=== PATIENT | female | born 1995 | race Caucasian/White ===

== ENCOUNTER 2024-08-21 10:47 | Emergency (ER) | payer MEDICAID, SELFPAY ==
--- NOTE | 2024-08-21 10:53 | ED.ABDPAIN ---
HPI - Abdominal Pain General Chief Complaint: Abdominal Pain Stated Complaint: Abdominal Pain Time Seen by Provider: 08/21/24 10:50 Discharge Plan Discharge Patient Language: Tristanian Follow-up/Referrals: Julia,MD Jarrett [Primary Care Provider] -
[2024-08-21 10:58] VITALS: BP 131/89; PULSE 115; RESP 16; TEMP 36.8; O2SAT 99
--- NOTE | 2024-08-21 11:46 | PC.NURSE ---
1055- pt not in room, registration states that they said they were going to the er.
== END 2024-08-21 11:46 | disposition left against medical advice (07) ==
PROVIDERS: PCP Internal Medicine
DX: Z53.21 Procedure and treatment not carried out due to patient leaving prior to being seen by health care provider (principal)
CPT/HCPCS: 99199

== ENCOUNTER 2024-08-21 11:23 | Emergency (ER) | payer MEDICAID, SELFPAY ==
--- NOTE | ~2024-08-21 | CT_ITS ---
EXAMINATION: CT abdomen pelvis w con DATE: 08/21/2024 12:23 INDICATION: Right lower quadrant abdominal pain. TECHNIQUE: Computed tomography (CT) of the abdomen and pelvis was performed with 100 mL Omnipaque 350 intravenous contrast. Automated exposure control and iterative reconstruction technique were employe d. The dose-length product was 1426.22 mGy-cm. COMPARISON: None. FINDINGS: The visualized portions of the lung bases are clear without pneumonia or pleural effusion. The heart size is normal. No pericardial effusion. There is diffuse hepatic steatosis. The gallbladde r, spleen, pancreas, adrenal glands, and right kidney are normal. There is a 3 mm cyst in left kidney . There are no dilated loops of bowel. The appendix is normal. There are no pathologically enlarged l ymph nodes. There is no free intraperitoneal fluid. There is mild thoracic and lumbar spondylosis. IMPRESSION: 1. Diffuse hepatic steatosis. Reviewed, dictated and finalized at location A. EAR ENGINEERING TECHNICIAN
[2024-08-21 11:25] VITALS: BP 136/90; PULSE 121; RESP 18; TEMP 36.2; O2SAT 100
[2024-08-21 12:10] LABS: BEDSIDEPREGUCG Negative (Negative)
[2024-08-21 12:15] LABS: Basophils Percent Auto 0.3 % (0.2-1.2); Eosinophils Percent Auto 0.3 % (0-4.4); Hematocrit 44.9 % (37.0-47.0); Hemoglobin 14.9 g/dL (12.0-15.0); Immature Granulocyte Absolute 0.05 K/mm3 (0.00-0.031); Immature Granulocyte Percent A 0.4 % (0-0.5); Lymphocytes Absolute Auto 2.68 K/mm3 (0.9-3.2); Lymphocytes Percent Auto 23.2 % (18.3-44.2); Mean Corpuscular HGB Conc 33.2 g/dl (32-36); Mean Corpuscular Hemoglobin 27.7 pg (26-34); Mean Corpuscular Volume 83.6 fl (80-100); Mean Platelet Volume 10.5 fl (7.4-10.4); Monocytes Absolute Auto 0.8 K/mm3 (0.1-0.6); Monocytes Percent Auto 7.3 % (2.6-8.5); Neutrophils Absolute Auto 7.9 K/mm3 (1.3-6.7); Neutrophils Percent Auto 68.5 % (45.5-73.1); Platelet Count Result 315 k/mm3 (150-375); Red Blood Count 5.37 M/mm3 (4.2-5.4); Red Cell Distribution Width 13.4 % (11.5-14.5); White Blood Count 11.6 K/mm3 (4.5-10.0)
[2024-08-21 12:22] LABS: Add Urine Microscopic? YES; Appearance Urine Clear (Clear); Bacteria Urine 1+ /hpf; Bilirubin Urine Negative (Negative); Blood Urine Negative (Negative); Color Urine Yellow (Yellow); Glucose Urine UA Negative (Negative); Ketones Urine Negative (Negative); Leukocyte Esterase Ur 2+ LEU/UL (Negative); Nitrate Urine Negative (Negative); Non Pathogenic Casts 0-2; Protein Urine Negative (Negative); RBC Urine 0-2 /hpf (0-2); Specific Grav Ur 1.007 (1.001-1.035); Squamous Epithelial Cell Urine Occasional /hpf (Few); Urobilinogen Urine 0.2 mg/dL (<2.0); pH Urine 7.5 (5.0-9.0)
[2024-08-21 12:25] LABS: Alanine Aminotransferase 40 U/L (6-35); Albumin Level 4.5 g/dL (3.5-5.1); Alkaline Phosphatase 66 U/L (38-126); Anion Gap 10 mmol/L (4-12); Aspartate Amino Transferase 35 U/L (14-36); Blood Urea Nitrogen 8 mg/dL (7-17); Calcium 9.3 mg/dL (8.4-10.2); Carbon Dioxide 25 mmol/L (22-30); Chloride 104 mmol/L (98-107); Estimated CRCL calculation 167 ml/min; Estimated Glomerular Filt Rate > 60; Glucose 79 mg/dL (65-110); Lipase 59 U/L (23-300); Sodium 139 mmol/L (137-145)
--- NOTE | 2024-08-21 12:26 | ED_ITS ---
HPI - Abdominal Pain General Chief Complaint: Abdominal Pain Stated Complaint: lower right abd pain Time Seen by Provider: 08/21/24 12:24 Source: patient and family Mode of arrival: ambulatory Limitations: no limitations History of Present Illness HPI narrative: RIGHT LOWER QUADRANT PAIN STARTED YESTERDAY, INTERMITTENT, WORSE WITH MOVEMENT, NOTHING MAKE IT BETTER. DULL ACHING, NO RADIATION. PATIENT REPORTS INTERMITTENT CHILLS AND NAUSEA Related Data Allergies Allergy/AdvReac Type Severity Reaction Status Date / Time No Known Allergies Allergy Verified 08/21/24 12:00 Review of Systems 2 Review of Systems: All systems reviewed & are unremarkable except as noted in HPI and below Exam 2 Narrative: GENERAL APPEARANCE: WELL-DEVELOPED, WELL-NOURISHED SKIN: NORMAL COLOR HEAD: NORMOCEPHALIC, NONTRAUMATIC EYES: CLEAR CONJUNCTIVA ENT: OROPHARYNX NORMAL, EARS NORMAL, NOSE NORMAL NECK: SUPPLE, NONTENDER CHEST AND RESPIRATORY: AIRWAY PATENT, NO RESPIRATORY DISTRESS, NO ACCESSORY MUSCLE USE HEART: REGULAR RATE/RHYTHM ABDOMEN: SOFT, MILD SUPRAPUBIC TENDERNESS NO ORGANOMEGALY, QUIET BOWEL SOUNDS VASCULAR: NORMAL PERIPHERAL PULSES, NORMAL CAPILLARY REFILL. MUSCULOSKELETAL: NORMAL RANGE OF MOTION, NONTENDER BACK NEUROLOGIC: ALERT AND ORIENTED ?3, HEAVY FORGER HELPER IS NORMAL TESTED, NO GROSS MOTOR DEFICIT Course Vital Signs Vital signs: Vital Signs Temperature 36.2 C L 08/21/24 11:25 Pulse Rate 121 H 08/21/24 11:25 Respiratory Rate 18 08/21/24 11:25 Blood Pressure 136/90 08/21/24 11:25 Pulse Oximetry 100 08/21/24 11:25 Oxygen Delivery Room Air 08/21/24 11:25 Temperature 36.2 C L 08/21/24 11:25 Pulse Rate 121 H 08/21/24 11:25 Respiratory Rate 18 08/21/24 11:25 Blood Pressure 136/90 08/21/24 11:25 Pulse Oximetry 100 08/21/24 11:25 Oxygen Delivery Room Air 08/21/24 11:25 MDM - Abdominal Pain MDM Narrative Medical decision making narrative: PATIENT CAME WITH RIGHT LOWER QUADRANT PAIN VITAL SIGNS SHOWING HEART RATE OF 121 OTHERWISE INSIGNIFICANT PHYSICAL EXAMINATION SHOWING TENDERNESS SUPRAPUBIC AREA DIFFERENTIAL DIAGNOSIS INCLUDE APPENDICITIS, URINARY TRACT INFECTION, OVARIAN CYST, CONSTIPATION, COLITIS, DIVERTICULITIS BLOOD WORKUP TODAY INCLUDES CBC CMP, LIPASE SHOWED WBC 11.6 URINALYSIS SHOWED 2+ LEUKOCYTE ESTRACE CT SCAN OF THE ABDOMEN AND PELVIS WITH IV CONTRAST SHOWED NO ACUTE ABNORMALITIES, DIFFUSE HEPATIC STEATOSIS DIAGNOSIS URINARY TRACT INFECTION PATIENT RECEIVED 1 G OF ROCEPHIN IV PRIOR TO DISCHARGE DISCHARGED ON MACROBID Differential Diagnosis Differential diagnosis: Likely other ( ABOVE) Lab Data 08/21/24 12:05 08/21/24 12:05 Labs: Lab Results 08/21/24 08/21/24 Range/Units 11:41 12:05 WBC 11.6 H (4.5-10.0) K/mm3 RBC 5.37 (4.2-5.4) M/mm3 Hgb 14.9 (12.0-15.0) g/dL Hct 44.9 (37.0-47.0) % MCV 83.6 (80-100) fl MCH 27.7 (26-34) pg MCHC 33.2 (32-36) g/dl RDW 13.4 (11.5-14.5) % Plt Count 315 (150-375) k/mm3 MPV 10.5 H (7.4-10.4) fl Immature Gran % (Auto) 0.4 (0-0.5) % Neut % (Auto) 68.5 (45.5-73.1) % Lymph % (Auto) 23.2 (18.3-44.2) % [place] % (Auto) 7.3 (2.6-8.5) % Eos % (Auto) 0.3 (0-4.4) % Baso % (Auto) 0.3 (0.2-1.2) % Lymph # (Auto) 2.68 (0.9-3.2) K/mm3 [place] # (Auto) 0.8 H (0.1-0.6) K/mm3 Eos # (Auto) 0.0 (0-0.3) K/mm3 Baso # (Auto) 0.0 (0.0-0.1) K/mm3 Abs Immat Gran (auto) 0.05 H (0.00-0.031) K/mm3 Absolute Neuts (auto) 7.9 H (1.3-6.7) K/mm3 Absolute Nucleated RBC 0.000 (0.0-0.012) K/mm3 Nucleated RBC % 0.0 (0.0-0.2) % Sodium 139 (137-145) mmol/L Potassium 4.0 (3.4-5.0) mmol/L Chloride 104 (98-107) mmol/L Carbon Dioxide 25 (22-30) mmol/L Anion Gap 10 (4-12) mmol/L BUN 8 (7-17) mg/dL Creatinine 0.53 L (0.7-1.0) mg/dL Estim Creat Clear Calc 167 ml/min Estimated GFR > 60 (59 - ) Glucose 79 (65-110) mg/dL Calcium 9.3 (8.4-10.2) mg/dL Total Bilirubin 1.0 (0.2-1.3) mg/dL AST 35 (14-36) U/L ALT 40 H (6-35) U/L Alkaline Phosphatase 66 (38-126) U/L Total Protein 8.0 (6.3-8.2) g/dL Albumin 4.5 (3.5-5.1) g/dL Lipase 59 (23-300) U/L Urine Color Yellow (Yellow) Urine Appearance Clear (Clear) Urine pH 7.5 (5.0-9.0) Ur Specific [place] 1.007 (1.001-1.035) Urine Protein Negative (Negative) mg/dL Urine Glucose (UA) Negative (Negative) mg/dL Urine Ketones Negative (Negative) mg/dL Ur Blood (Man) Negative (Negative) Urine Nitrate Negative (Negative) Urine Bilirubin Negative (Negative) Urine Urobilinogen 0.2 (<2.0) mg/dL Leukocyte Esterase Rfl 2+ H (Negative) DAIANA/UL Urine RBC 0-2 (0-2) /hpf Urine WBC 6-10 H (0-3) /hpf Ur Squamous Epith Cells Occasional (Few) /hpf Urine Bacteria 1+ H /hpf Urine Casts 0-2 POC Urine HCG, Qual Negative (Negative) Critical Care Time Critical Care Time Critical Care Time: No Discharge Plan Discharge Clinical Impression: Urinary tract infection Patient Disposition: Home, Self-Care Condition: Stable Instructions: Antibiotic Form, Urinary Tract Infection in Women (ED) Additional Instructions: THE PT WAS DISCHARGED TO HOME.THE PT,S CONDITION UPON DISCHARGE WAS FAIR,EDUCATION WAS PROVIDED TO THE PT IN REFERENCE TO THE FINAL IMPRESSION,DISCHARGE STUDY RESULTS,TREATMENT,PROGNOSIS AND NEED FOR FOLLOW UP . Patient Language: Turkmen Prescriptions: New nitrofurantoin monohyd/m-cryst [Macrobid] 100 mg capsule 100 mg PO Q12H 5 Days Qty: 10 0RF Rx Instructions: must administer with a meal/food Follow-up/Referrals: Julia,MD Jarrett [Primary Care Provider] -
[2024-08-22 11:11] LABS: Estimated CRCL calculation 130 ml/min; Estimated Glomerular Filt Rate > 60
== END 2024-08-21 13:09 | disposition home or self-care (01) ==
LOC: ANHED 12:49
PROVIDERS: Emergency Provider Emergency Medicine; PCP Internal Medicine
DX: N39.0 Urinary tract infection, site not specified (principal)
CPT/HCPCS: 36415; 74177; 80053; 81001; 81025; 82565; 83690; 85025; 87086; 96365; 99284; J0696; Q9967

== ENCOUNTER 2025-01-06 11:35 | Emergency (ER) | payer OTHER, SELFPAY ==
[2025-01-06 11:44] VITALS: BP 143/87; PULSE 112; RESP 16; TEMP 36.3; O2SAT 100
[2025-01-06] MEDS: KETOROLAC 30 MG/ML VIAL (*BKC) 15 MG IM (12:11)
[2025-01-06] MEDS: METOCLOPRAMIDE HCL INJ 10 MG/2 ML VIAL IM (12:12)
[2025-01-06] MEDS: droPERidol 5 MG/2 ML VIAL IM (13:48)
[2025-01-06 15:17] VITALS: BP 113/72; PULSE 89; RESP 15; O2SAT 98
--- OUTSIDE RECORDS SUMMARY | 2025-01-06 18:01 | XMS_ITS | Encounter Summary ---
Author Organization [facility] [place] [address] [place] [address] Care Team Providers Care Kindergarten Assistant Name Role Phone Unavailable Primary Care Provider Unavailabl e Prior Encounters Date Type Department Care Team Description 06/08/2022 Telephone [facility] [address] [place] [address] Roxane Matt DDS 04/17/2021 Travel 04/17/2021 9:00 AM CDT Office Visit [facility] [address] [place] [address] Roxane Matt DDS 04/06/2021 Travel 04/06/2021 4:15 PM CDT Office Visit [facility] [address] [place] [address] Roxane Matt DDS 08/27/2019 Converted 13x Documents [facility] [address] [place] [phone] <No scans attached> 08/27/2019 Converted CPS Chart Documents [facility] [address] [place] [address] <No scans attached> 08/27/2019 Converted CPS Chart Documents [facility] [address] [place] [phone] <No scans attached> 08/27/2019 Converted 13x Documents [facility] [address] [place] [address] <No scans attached> 08/27/2019 Converted 13x Documents [facility] [address] [place] [phone] <No scans attached> Last Filed Vital Signs Vital Sign Reading Time Taken Comments Blood Pressure 107/69 04/17/2021 9:05 AM CDT Pulse 96 04/17/2021 9:05 AM CDT Temperature 36.4 C (97.6 F) 04/17/2021 9:05 AM CDT Respiratory Rate - - Oxygen Saturation - - Inhaled Oxygen Concentration - - Weight - - Height - - Body Mass Index - - Plan of Treatment Not on file Procedures Procedure Name Priority Date/Time Associated Diagnosis Comments OCCLUSAL GUARD DELIVERY Routine 04/17/20 9:00 AM CDT ORAL HYGIENE INSTRUCTIONS Routine 2020 9:00 AM CDT TOPICAL APPLICATION OF FLUORIDE VARNISH Routine 04/17/2021 9:00 AM CDT PROPHYLAXIS - ADULT Routine 04/17/2021 9 :00 AM CDT PERIODIC ORAL EVALUATION - ESTABLISHED PATIENT Routine 04/17/2021 9:00 AM CDT OCCLUSAL GUARD HARD APPLIANCE, FULL ARCH Routine 04/06/2021 4:15 PM CDT PANORAMIC RADIOGRAPHIC IMAGE Routine 04/06/2021 4:15 PM CDT BITEWING - SINGLE RADIOGRAPHIC IMAGE Routine 04/06/2021 4:15 PM CDT ADDITIONAL X-RAY Routine 04/06/2021 4:15 PM CDT SINGLE X-RAY Routine 04/06/2021 4:15 PM CDT LIMITED ORAL EVALUATION - PROBLEM FOCUSED Routine 04/06/2021 4:15 PM CDT PERIODIC ORAL EVALUATION - ESTABLISHED PATIENT Routine 09/02/2020 2:00 AM MANAGER CORPORATE RESPONSIBILITY ORAL HYGIENE INSTRUCTIONS Routine 2020 2:00 AM MANAGER CORPORATE RESPONSIBILITY TOPICAL APPLICATION OF FLUORIDE VARNISH Routine 09/02/2020 2:00 AM MANAGER CORPORATE RESPONSIBILITY PROPHYLAXIS - ADULT Routine 09/02/2020 2 :00 AM MANAGER CORPORATE RESPONSIBILITY BITEWINGS - FOUR RADIOGRAPHIC IMAGES Routine 09/02/2020 2:00 AM MANAGER CORPORATE RESPONSIBILITY ADDITIONAL X-RAY Routine 09/02/2020 2:00 AM MANAGER CORPORATE RESPONSIBILITY ADDITIONAL X-RAY Routine 09/02/2020 2:00 AM MANAGER CORPORATE RESPONSIBILITY ADDITIONAL X-RAY Routine 09/02/2020 2:00 AM MANAGER CORPORATE RESPONSIBILITY ADDITIONAL X-RAY Routine 09/02/2020 2:00 AM MANAGER CORPORATE RESPONSIBILITY ADDITIONAL X-RAY Routine 09/02/2020 2:00 AM MANAGER CORPORATE RESPONSIBILITY SINGLE X-RAY Routine 09/02/2020 2:00 AM MANAGER CORPORATE RESPONSIBILITY ORAL HYGIENE INSTRUCTIONS Routine 2019 2:00 AM CDT TOPICAL APPLICATION OF FLUORIDE VARNISH Routine 02/26/2020 2:00 AM CDT PROPHYLAXIS - ADULT Routine 02/26/2020 2 :00 AM CDT PERIODIC ORAL EVALUATION - ESTABLISHED PATIENT Routine 02/26/2020 2:00 AM CDT TOPICAL APPLICATION OF FLUORIDE VARNISH Routine 08/28/2019 2:00 AM MANAGER CORPORATE RESPONSIBILITY PROPHYLAXIS - ADULT Routine 08/28/2019 2 :00 AM MANAGER CORPORATE RESPONSIBILITY PERIODIC ORAL EVALUATION - ESTABLISHED PATIENT Routine 08/28/2019 2:00 AM MANAGER CORPORATE RESPONSIBILITY ORAL HYGIENE INSTRUCTIONS Routine 2019 2:00 AM MANAGER CORPORATE RESPONSIBILITY DELIVER RETAINER(S) Routine 07/19/2019 2 :00 AM MANAGER CORPORATE RESPONSIBILITY DELIVERY - REPLACEMENT RETAINER - MAXILLARY Routine 06/14/2019 2:00 AM MANAGER CORPORATE RESPONSIBILITY REMOVABLE ORTHODONTIC RETAINER ADJUSTMENT Routine 06/14/2019 2:00 AM MANAGER CORPORATE RESPONSIBILITY PERIO CONSULT Routine 03/13/2019 2:00 AM CDT ORAL HYGIENE INSTRUCTIONS Routine 2018 2:00 AM CDT TOPICAL APPLICATION OF FLUORIDE VARNISH Routine 02/27/2019 2:00 AM CDT PROPHYLAXIS - ADULT Routine 02/27/2019 2 :00 AM CDT PERIODIC ORAL EVALUATION - ESTABLISHED PATIENT Routine 02/27/2019 2:00 AM CDT BITEWINGS - FOUR RADIOGRAPHIC IMAGES Routine 02/27/2019 2:00 AM CDT ADDITIONAL X-RAY Routine 02/27/2019 2:00 AM CDT ADDITIONAL X-RAY Routine 02/27/2019 2:00 AM CDT ADDITIONAL X-RAY Routine 02/27/2019 2:00 AM CDT ADDITIONAL X-RAY Routine 02/27/2019 2:00 AM CDT ADDITIONAL X-RAY Routine 02/27/2019 2:00 AM CDT SINGLE X-RAY Routine 02/27/2019 2:00 AM CDT INTRAORAL PHOTO Routine 02/27/2019 2:00 AM CDT INTRAORAL PHOTO Routine 02/27/2019 2:00 AM CDT INTRAORAL PHOTO Routine 02/27/2019 2:00 AM CDT INTRAORAL PHOTO Routine 02/27/2019 2:00 AM CDT ORAL HYGIENE INSTRUCTIONS Routine 2018 2:00 AM MANAGER CORPORATE RESPONSIBILITY TOPICAL APPLICATION OF FLUORIDE VARNISH Routine 08/22/2018 2:00 AM MANAGER CORPORATE RESPONSIBILITY PROPHYLAXIS - ADULT Routine 08/22/2018 2 :00 AM MANAGER CORPORATE RESPONSIBILITY PERIODIC ORAL EVALUATION - ESTABLISHED PATIENT Routine 08/22/2018 2:00 AM MANAGER CORPORATE RESPONSIBILITY ORAL HYGIENE INSTRUCTIONS Routine 2017 2:00 AM CDT TOPICAL APPLICATION OF FLUORIDE VARNISH Routine 02/06/2018 2:00 AM CDT PROPHYLAXIS - ADULT Routine 02/06/2018 2 :00 AM CDT COMPREHENSIVE ORAL EVALUATION - NEW OR ESTABLISHED PATIENT Routine 02/06/2018 2:00 AM CDT PANORAMIC RADIOGRAPHIC IMAGE Routine 02/06/2018 2:00 AM CDT BITEWINGS - FOUR RADIOGRAPHIC IMAGES Routine 02/06/2018 2:00 AM CDT CANCELLED APPOINTMENT Routine 08/06/2016 2:00 AM MANAGER CORPORATE RESPONSIBILITY CANCELLED APPOINTMENT Routine 08/06/2016 2:00 AM MANAGER CORPORATE RESPONSIBILITY PERIODIC ORAL EVALUATION - ESTABLISHED PATIENT Routine 03/31/2016 2:00 AM CDT ORAL HYGIENE INSTRUCTIONS Routine 2015 2:00 AM CDT TOPICAL APPLICATION OF FLUORIDE VARNISH Routine 02/26/2016 2:00 AM CDT PROPHYLAXIS - ADULT Routine 02/26/2016 2 :00 AM CDT PERIODIC ORAL EVALUATION - ESTABLISHED PATIENT Routine 02/26/2016 2:00 AM CDT PERIODIC ORAL EVALUATION - ESTABLISHED PATIENT Routine 08/11/2015 2:00 AM MANAGER CORPORATE RESPONSIBILITY ORAL HYGIENE INSTRUCTIONS Routine 2014 2:00 AM MANAGER CORPORATE RESPONSIBILITY TOPICAL APPLICATION OF FLUORIDE VARNISH Routine 07/29/2015 2:00 AM MANAGER CORPORATE RESPONSIBILITY PROPHYLAXIS - ADULT Routine 07/29/2015 2 :00 AM MANAGER CORPORATE RESPONSIBILITY 19 B COMPOSITE FILLING Routine 4 2:00 AM MANAGER CORPORATE RESPONSIBILITY 18 B COMPOSITE FILLING Routine 4 2:00 AM MANAGER CORPORATE RESPONSIBILITY ORAL HYGIENE INSTRUCTIONS Routine 2013 2:00 AM MANAGER CORPORATE RESPONSIBILITY TOPICAL APPLICATION OF FLUORIDE VARNISH Routine 07/31/2014 2:00 AM MANAGER CORPORATE RESPONSIBILITY PROPHYLAXIS - ADULT Routine 07/31/2014 2 :00 AM MANAGER CORPORATE RESPONSIBILITY PERIODIC ORAL EVALUATION - ESTABLISHED PATIENT Routine 07/31/2014 2:00 AM MANAGER CORPORATE RESPONSIBILITY BITEWINGS - FOUR RADIOGRAPHIC IMAGES Routine 07/31/2014 2:00 AM MANAGER CORPORATE RESPONSIBILITY BITEWINGS - FOUR RADIOGRAPHIC IMAGES Routine 01/30/2014 2:00 AM CDT ADDITIONAL X-RAY Routine 01/30/2014 2:00 AM CDT ADDITIONAL X-RAY Routine 01/30/2014 2:00 AM CDT ORAL HYGIENE INSTRUCTIONS Routine 2013 2:00 AM CDT TOPICAL APPLICATION OF FLUORIDE EXCLUDING VARNISH Routine 01/29/2014 2:00 AM CDT PROPHYLAXIS - ADULT Routine 01/29/2014 2 :00 AM CDT PERIODIC ORAL EVALUATION - ESTABLISHED PATIENT Routine 01/29/2014 2:00 AM CDT INTRAORAL - COMPREHENSIVE SERIES OF RADIOGRAPHIC IMAGES Routine 01/29/2014 2:00 AM CDT INTRAORAL PHOTO Routine 01/29/2014 2:00 AM CDT INTRAORAL PHOTO Routine 01/29/2014 2:00 AM CDT INTRAORAL PHOTO Routine 01/29/2014 2:00 AM CDT INTRAORAL PHOTO Routine 01/29/2014 2:00 AM CDT ORAL HYGIENE INSTRUCTIONS Routine 2012 2:00 AM MANAGER CORPORATE RESPONSIBILITY TOPICAL APPLICATION OF FLUORIDE EXCLUDING VARNISH Routine 06/26/2013 2:00 AM MANAGER CORPORATE RESPONSIBILITY PROPHYLAXIS - CHILD Routine 06/26/2013 2 :00 AM MANAGER CORPORATE RESPONSIBILITY PERIODIC ORAL EVALUATION - ESTABLISHED PATIENT Routine 06/26/2013 2:00 AM MANAGER CORPORATE RESPONSIBILITY CANCELLED APPOINTMENT Routine 04/23/2013 2:00 AM CDT THERAPEUTIC PARENTERAL DRUG, SINGLE ADMINISTRATION Routine 04/17/2013 2:00 AM CDT 16 REMOVAL OF IMPACTED TOOTH - COMPLETELY BONY, WITH UNUSUAL SURGICAL COMPLICATIONS Routine 04/17/2013 2:00 AM CDT 1 REMOVAL OF IMPACTED TOOTH - COMPLETELY BONY, WITH UNUSUAL SURGICAL COMPLICATIONS Routine 04/17/2013 2:00 AM CDT 32 EXTRACTION, ERUPTED TOOTH REQUIRING REMOVAL OF BONE AND/OR SECTIONING OF TOOTH Routine 04/17/2013 2:00 AM CDT 17 EXTRACTION, ERUPTED TOOTH REQUIRING REMOVAL OF BONE AND/OR SECTIONING OF TOOTH Routine 04/17/2013 2:00 AM CDT 1 APPLICATION OF DESENSITIZING MEDICAMENT Routine 04/17/2013 2:00 AM CDT ORAL HYGIENE INSTRUCTIONS Routine 2012 2:00 AM CDT PROPHYLAXIS - ADULT Routine 10/18/2012 2 :00 AM CDT COMPREHENSIVE ORAL EVALUATION - NEW OR ESTABLISHED PATIENT Routine 10/18/2012 2:[address] CD[address] CAPTURE AND INTERPRETATION WITH FIELD OF VIEW OF BOTH JAWS; WITH OR WITHOUT CRANIUM Routine 10/18/2012 2:00 AM CDT BITEWINGS - FOUR RADIOGRAPHIC IMAGES Routine 10/18/2012 2:00 AM CDT INTRAORAL PHOTO Routine 10/18/2012 2:00 AM CDT Visit Diagnoses Not on file Insurance [id number]
--- OUTSIDE RECORDS SUMMARY | 2025-01-06 18:01 | XMS_ITS | Data Portability ---
Author Organization [facility] [place] Address [address] [place] [address] Assessment Encounter Date Assessment Date Assessment LastModified by Organization Details LastModified Time 06/27/2024 06/27/2024 Annual gynecological exam performed. Patient will come back in a year unless there are new symptoms. [email or web address] Not available 06/27/2024 11:59:13 Plan of Treatment Reminders Order Date Submit Date Provider Last Modified By Organization Details Last Modified Time Details Appointments None recorded. Lab pap, IG + reflex HPV if ASC-U - if positive HPV run subtyping 16,18/45 2023 024 [facility] (Lab), [address], [place], [address], 4 15:38:55 Referral None recorded. Procedures None recorded. Surgeries robotic assisted hysterectom y with salpingecto my (SURG) 2024 025 [facility], [facility] [address], [address], 5 10:17:03 Imaging None recorded. Medication Orders Slynd 4 mg (28) tablet 2024 025 [id number], [address] [place], [place], [id number], 5 13:19:49 Slynd 4 mg (28) tablet 2023 024 [id number], [address] [facility] [place], [place], [id number], 4 12:43:01 Patient TargetsNo targets recorded. Patient InstructionsNo instructions recorded. Reason for Referral None Reported. Results Created Date Observation Date Name Description Value Unit Range Abnormal Flag Note LastModifiedBy Organization Detail LastModifiedTime 06/29/20 24 10/08/2022 CT, abdom en + pelvi s, w/ contr ast No observ ation record ed. [email or web address] [facility] [address], [place], [address], 06/29/2024 14:17:00 Result Notes None recorded. Procedures Surgical History Date Name Laterality Status Provider Name and Address Organization Details Recorded Time 4 Date of Last Pap Smear completed SHONNA Pierre [facility] 09/27/2024 11:43:51 2 Laparoscopy completed Lyubov Kiana [facility] 06/27/2024 11:59:42 Imaging Results None recorded. Procedure Notes None recorded. Medical Equipment None Reported. Allergies No known drug allergies Medications Name Sig Start Date Stop Date Status Note LastModified by Organization Details LastModified Time alosetron 1 mg tablet TAKE 1 TABLET BY MOUTH DAILY 06/27 completed Not Available Not Available Not Available dicyclomine 20 mg tablet active Not Available Not Available Not Available ergocalcifer ol (vitamin D2) 1,250 mcg (50,000 unit) capsule TAKE 1 CAPSULE BY MOUTH EVERY 7 DAYS active Not Available Not Available No t Available amoxicillin 875 mg-potassium clavulanate 125 mg tablet 09/27 completed Not Available Not Available Not Available nitrofuranto in monohydrate/ macrocrystal s 100 mg capsule TAKE 1 CAPSULE BY MOUTH EVERY 12 HOURS FOR 5 DAYS 09/27 completed Not Available Not Available Not Available dicyclomine 10 mg tablet Take 1 tablet every day by oral route. 09/27 completed Not Available Not Available Not Available Blisovi Fe 08/27 (28) 1 mg-20 mcg (21)/75 mg (7) tablet Take 1 tablet every day by oral route. 09/27 completed Not Available Not Available Not Available Slynd 4 mg (28) tablet Take 1 tablet every day by oral route. active Not Available Not Available No t Available Vitals Date Recorded Body height Body mass index (BMI) Body weight Systolic blood pressure Diastolic blood pressure Provider Name and Address Organization Details Last Updated DateTime 09/27/2024 167.64 cm 40.4 kg/m2 110422.0 9 g 123 mm[Hg] 81 mm[Hg] SHONNA Gabby [facility] 5 11:42:56 Date Recorded Body height Body mass index (BMI) Body weight Systolic blood pressure Diastolic blood pressure Provider Name and Address Organization Details Last Updated DateTime 10/22/2024 167.64 cm 40.4 kg/m2 498504.0 9 g 128 mm[Hg] 83 mm[Hg] Angela [facility] 5 12:09:17 Date Recorded Body height Body mass index (BMI) Body weight Systolic blood pressure Diastolic blood pressure Provider Name and Address Organization Details Last Updated DateTime 11/21/2024 167.64 cm 39.9 kg/m2 647001.3 2 g 114 mm[Hg] 83 mm[Hg] [facility] 5 11:33:57 Date Recorded Body weight Body mass index (BMI) Body height Provider Name and Address Organization Details Last Updated DateTime 06/27/2024 95187.86 g 24.2 kg/m2 167.64 cm [facility] 06/27/2024 12:02:26 Social History Question Answer Notes LastModified by Organizat ion Details LastModified Time Do You Have An Advance Directive? No [email or web address] Information n ot available 06/27/2024 How Many Years Have You Consumed Alcohol? 7 Information not available 06/27/2024 Are You Blind Or Do You Have Difficulty Seeing? No [email or web address] Information n ot available 06/27/2024 What Is Your Level Of Caffeine Consumption? Occasional [email or web address] Information not available 06/27/2024 How Much Tobacco Do You Chew? None [email or web address] Information not available 06/27/2024 In The 14 Days Before Symptom Onset, Have You Had Close Contact With A Laboratory-confirm ed COVID-19 While That Case Was Ill? No [email or web address] Information n ot available 06/27/2024 In The 14 Days Before Symptom Onset, Have You Had Close Contact With A Person Who Is Under Investigation For COVID-19 While That Person Was Ill? No [email or web address] Information not available 06/27/2024 Have You Been To An Area Known To Be High Risk For COVID-19? No [email or web address] Information not available 06/27/2024 Are You Deaf Or Do You Have Serious Difficulty Hearing? No [email or web address] Information not available 06/27/2024 What Type Of Diet Are You Following? REGULAR [email or web address] Information n ot available 06/27/2024 What Is The Highest Grade Or Level Of School You Have Completed Or The Highest Degree You Have Received? [id number] [email or web address] Information not available 06/27/2024 Are There Any Guns Present In Your Home? No [email or web address] Information not available 06/27/2024 Do You Use Protection During Sex? Always [email or web address] Information not available 06/27/2024 Do You Use Your Seat Belt Or Car Seat Routinely? Yes [email or web address] Information not available 06/27/2024 Do You Have Smoke And Carbon Monoxide Detectors In Your Home? Yes [email or web address] Information not available 06/27/2024 At What Age Did You Start Smoking Tobacco? 0 [email or web address] Information not available 06/27/2024 Do You Use Sunscreen Routinely? Yes [email or web address] Information not available 06/27/2024 How Many Years Have You Smoked Tobacco? 0 Information not available 06/27/2024 Have You Used IV Drugs? No [email or web address] Information not available 06/27/2024 Do You Have Difficulty Walking Or Climbing Stairs? No [email or web address] Information not available 09/27/2024 Sex: Unknown Functional Status Question Answer Note LastModified by Organizat ion Details LastModified Time Do you use any illicit or recreational drugs? No [email or web address] Information not available 06/27/2024 What is your level of alcohol consumption? Occasional [email or web address] Information not available 06/27/2024 Are you able to walk? [email or web address] Information not available 06/27/2024 Are you able to care for yourself? 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 No [email or web address] Information not available 09/27/2024 What is your exercise level? Occasional [email or web address] Information not available 06/27/2024 Mental Status Question Answer Note LastModified by Organization D etails LastModified Time Do you feel stressed (tense, restless, nervous, or anxious, or unable to sleep at night)? [id number] [email or web address] Information not available 06/27/2024 Family History Relationship Description Onset Age of this Age Resolved Age Notes LastModified by Organization Details LastModified Time Maternal Grandmother Diabetes mellitus 50 [email or web address] Not available 2023 11:59:42 Father Diabetes mellitus 50 [email or web address] Not available 2023 11:59:42 Medical History Condition Response Allergies (Food, seasonal, environmental ) Y Eating Disorder Y Other Y Polycystic ovary syndrome Y Gynecological History Statement/Question Response Flow Light Date of LMP 09/11/2024 N Was last menstrual period normal N STIs/STDs N Date of Last Colonoscopy BCPs Desired Control Method Sterilizati on Abnormal Pap N On BCP's at Conception? N HPV Vaccine Y Duration of Flow (days) 5 13 Current Control Method BCPs Age at First Child 1 Are cycles usually normal N Sexually Active? N Menses Monthly Y Age of first menstrual cycle 13 Date of Last Pap Smear 06/27/2024 Sexual Problems? N LMP Approximate N Obstetrics History GPAL:G 0 P 0 0 0 0 Past Encounters Encounter ID Performer Location Encounter Start Date Encounter Closed Date Diagnosis/Indication Diagnosis SNOMED-CT Code Diagnosis ICD10 Code Diagnosis Note [id number] Humble Parker MD [place] [address] [address] 06/27/2024 11:44:23 06/27/2024 12:48:42 Gynecologic examination 09603738 Z01.419 Annual gynecologi stephon exam performed. Patient will come back in a year unless there are new symptoms. Suggest Calcium with Vitamin D if not eating in diet. Patient advised to get annual flu shot. Recommend yearly physicals and perform monthly breast exams. Genetic testing is available for patients with family history of cancer. Engage in safe sexual practices, use condoms. Encouraged to have daily exercise. Avoid tobacco and illicit drugs, moderation of alcohol. If BMI greater than 25 dietary consult advised. If you have any questions please call or email. Pap smear- pap w/ HPV reflex collected STI testing - declined Contracept ion care management 146264762 Z30.9 Today we discussed multiple options for menorrhagi a/dysmenor martin including: IUDs, Patch, Ring, Pills, Nexplanon, Lysteda.We discussed if any are contraindi cated with her current health Hx.Patient desires to continue on a BC pill. Discussed Slynd vs. Seasonique 3-month dosepack vs. monthly CHC.Patien t interested in progestero ne-only pills to try. Samples given. Pt to start Slynd when next pill pack is due. Risks/bene fits/instr uctions for use reviewed.P atient to RTO in 3 months for med check. Secondary dysmenorrhea 42960074 N94.5 [id number] Humble Parker MD [place] [address] [address] 09/27/2024 11:33:44 09/27/2024 13:22:10 Contraception care management 975603213 Z30.9 has noticed some improvemen t since starting slyndstill feels like symptoms could be better controlled options reviewed (continous cycling, switching pills/alte rnative options like IUD, or MD consult)we discussed option of continous cycling, skip placebo pills and go straight to new packshe is going to try this over the next 4 monthsRTC for med check in 4 months Time spent in visit is a total of 18 mins with at least 50% of visit consisting of counseling and review of plan of care. Dysmenorrhea 332231291 N 94.6 [id number] Humble Parker MD [place] [address] [address] 10/22/2024 11:45:12 10/22/2024 12:45:40 Menorrhagia 596876445 N92.0 Dysmenorrhea 977106976 N 94.6 This patient is a 29 year-old female presents for heavy vaginal bleeding. She has longstandi ng very heavy bleeding. Her menses are regular. However, they require double protection . Patient has accidents, getting blood on her bedding and clothing. Is affected work. She changes a pad or tampon every hour. She leaks blood around the pad and tampon. This bleeding has a profound impact on her quality of life and her activities of daily living.the patient has failed hormonal contracept memo treatment. Patient would like definitive surgical treatment. She has PCOS in addition to the severe menorrhagi a. We have agreed to proceed with robotic assisted hysterecto my with bilateral salpingect gonzález. We discussed the risks, benefits, and alternativ es keeping her ovaries. I spent over 30 minutes on her care in total. [id number] Humble Parker MD [place] [address] [address] 11/21/2024 11:21:36 11/21/2024 14:47:24 Pain in pelvis 02652064 R10.2 Menorrhagia 078964679 N9 2.0 29-year-ol d female who presents for more counseling regarding treatment of pelvic pain, menorrhagi a and hysterecto my. She has concerns about hormonal status. She has concerned about her polycystic ovarian syndrome. We discussed keeping and leaving the ovaries. The risks, benefits, and alternativ es to the ovarian preservati on/ removal. Talked about hormone replacemen t therapy in detail. We talked about PCOS as it pertains to post hysterecto my. I spent over 30 minutes on the patient's care in total. We agreed to proceed with hysterecto my. Polycystic ovary syndrome [id number] E28.2 Health Concerns Section Related Observation LastModified by Organization Detai ls LastModified Time None Recorded Concern Status LastModified by Organization Details LastModified Time None Recorded Advance Directives Directive N: Payers Encounter Date Sequence Insurance Name Policy Number Policy Beltran Covered Member ID Beltran Member ID Guarantor Name 06/27/2024 1 [place] [id number] Sandrine Degraff [id number] Sandrine Degraff 09/27/2024 1 [place] [facility] PUBLIC [employer] Sandrine Melvin [id number] Sandrine Degraff 10/22/2024 1 [facility] (MEDICAID HMO) [id number] Sandrine Riverraff [id number] Sandrine Degraff 11/21/2024 1 [facility] (MEDICAID HMO) [id number] Sandrine Degraalma [id number] Sandrine Riverraalma Notes Date Note Type Note Provider Name and Address Organization Details Recorded Time 06/27/2024 text/html Annual GYNReport ed bypatient.Menstrual cycle:Severe dysmenorrhea Urinary symptoms:No hematuria; No incontinence Vulva:No genital lesion Vagina:Normal vaginal discharge Breast:No breast pain; No breast lump; No nipple discharge Current Contraception:Oral contraceptives Sexual complaints:No sexual complaints; No pain during intercourse; Normal libido Menopausal Symptoms:No menopausal symptoms; Normal vaginal lubrication Psychological symptoms:No depression; No anxiety; No PMDD Preventive measures:Encourage self breast examination; Encourage regular exercise; Encourage no tobacco use; Encourage regular mammograms starting age 40 New patient presents to establish care.Patient hx of PCOS.Patient c/o painful periods and ovarian cysts in the past that were controlled with BC pills, but recently has had more dysmenorrhea and heavier periods recently on Blisovi. Patient denies additional concerns. Pt would like to switch BC pills.Not sexually active. Lyubov adams, [facility] 06/27/2024 14:09:48 09/27/2024 text/html 29yopresents for med checkstarted slynd for dysmenorrhea 3 months agoprevious to slynd tried combined OCP and was still experiencing painful periodshas noticed improvement with slynd, still experiencing some discomfort during placebo pills KIAN Sims [address], [place], [address], [facility] 09/27/2024 13:22:03 10/22/2024 text/html This patient is a 29 year-old female presents for heavy vaginal bleeding. She has longstanding very heavy bleeding. Her menses are regular. However, they require double protection. Patient has accidents, getting blood on her bedding and clothing. Is affected work. She changes a pad or tampon every hour. She leaks blood around the pad and tampon. This bleeding has a profound impact on her quality of life and her activities of daily living.the patient has failed hormonal contraceptive treatment. Patient would like definitive surgical treatment. She has PCOS in addition to the severe menorrhagia. We have agreed to proceed with robotic assisted hysterectomy with bilateral salpingectomy. We discussed the risks, benefits, and alternatives keeping her ovaries. I spent over 30 minutes on her care in total. Humble Parker MD [address], [place], [address], [facility] 10/22/2024 12:44:08 11/21/2024 text/html 29-year-old femcarlos aguayo who presents for more counseling regarding treatment of pelvic pain, menorrhagia and hysterectomy. She has concerns about hormonal status. She has concerned about her polycystic ovarian syndrome. We discussed keeping and leaving the ovaries. The risks, benefits, and alternatives to the ovarian preservation/ removal. Talked about hormone replacement therapy in detail. We talked about PCOS as it pertains to post hysterectomy. I spent over 30 minutes on the patient's care in total. We agreed to proceed with hysterectomy. Humble Parker MD [address], [place], [address], [facility] 11/21/2024 14:20:47 OBGyn Episode No OBEpisode recorded.
--- OUTSIDE RECORDS SUMMARY | 2025-01-06 18:01 | XMS_ITS ---
Author Organization [facility] Address [address] [place], [place] [address] Care Team Providers Care Keyboarding Clerk Name Role Phone Jarrett Dumont Unavailable Unavailable RUDY RICARDO Unavailable [phone] Allergies No Known Allergies REASON FOR VISIT The patient has a painful ingrown toenail on the lateral aspect of her left great toenail. She has to dig it out and it keeps coming back. She would like it treated Vital Signs Height 66 in 05/17/2024 Weight 240 lbs 05/17/2024 BMI 38.73 kg/m2 05/17/2024 Height-cm 167.64 cm 05/17/2024 Weight-kg 108.86 kg 05/17/2024 Encounters Encounter Location Date Provider Diagnosis [facility] [address] [place], [place] [id number] 05/17/2024 RUDY RICARDO Ingrowing nail L60.0 ; Cellulitis of left toe L03.032 and Pain in left toe(s) M79.675 Assessments Encounter Date Diagnosis (ICD Code) Assessment Notes Treatment Notes Treatment Clinical Notes Section Notes 05/17/2024 Ingrowing nail (ICD-10 - L60.0) Matrixectomy of Nail Border: I discussed various treatment options to the patient for their toenail issue. I discussed removal of the offending nail border and chemical matrixectomy to prevent regrowth. The patient decided on permanent removal of the nail border. The consent was signed and placed in the patients chart and all questions were answered. Following skin prep, the toe was injected with 3ccs of a 1:1 mixture of 0.5% marcaine plain and 1% lidocaine plain. A digital tourniquet was applied and the offending nail border and nail matrix were removed. Three applications of 89% phenol for 30 seconds each, were applied to the nail matrix to prevent regrowth. The digital tourniquet was released and the toe was cleansed with isopropyl alcohol. A dry sterile compressive dressing was applied and the patient was given soaking instructions. The lateral border of the left great toenail was treated 05/17/2024 Cellulitis of left toe (ICD-10 - L03.032) 05/17/2024 Pain in left toe(s) (ICD-10 - M79.675) Plan Of Treatment Treatment Notes Assessment Notes Ingrowing nail Matrixectomy of Nail Border: I discussed various treatment options to the patient for their toenail issue. I discussed removal of the offending nail border and chemical matrixectomy to prevent regrowth. The patient decided on permanent removal of the nail border. The consent was signed and placed in the patients chart and all questions were answered. Following skin prep, the toe was injected with 3ccs of a 1:1 mixture of 0.5% marcaine plain and 1% lidocaine plain. A digital tourniquet was applied and the offending nail border and nail matrix were removed. Three applications of 89% phenol for 30 seconds each, were applied to the nail matrix to prevent regrowth. The digital tourniquet was released and the toe was cleansed with isopropyl alcohol. A dry sterile compressive dressing was applied and the patient was given soaking instructions. The lateral border of the left great toenail was treated Next Appt Details Follow Up: 1 Week, Reason: P ost-op nail surgery check Progress Notes * Hola MELVINraDOB:1994 (29 yo F)Acc No.[id number]:05/17/2024 Progress Notes Patient: Sandrine HERMAN Provider: Charleen Ricardo DPM :1995 A ge:29 Y S ex:Female Date:05/17/2024 Address: [address] [id number] Subjective: * Chief Complaints: * 1 . The patient has a painful ingrown toenail on the lateral aspect of her left great toenail. She has to dig it out and it keeps coming back. She would like it treated. * HPI: H PI: New Complaint P elliott presents for a new patient consultation., Patient complains of an issue to Left lateral GT. , Duration of problem has been going on for years. Painful to the touch. , Patient denies any injury. Patient states she did try to remove it herself and is afraid she cut the ingrown nail portion off of the nail and can't seem to get it out. , MA: beg. * ROS: G eneral / Constitutional: Patient denies c hills, fever, weakness, night sweats. M usculoskeletal: Patient denies c hildhood foot problems, weakness. ? P eripheral Vascular: Patient denies u lceration of feet, cold extremities. ? S kin: Patient denies u lcerations, discoloration. P atient complains of i ngrown nails. N eurologic: Patient denies b alance difficulty, confusion, difficulty speaking, dizziness. * Medical History: * Surgical History: w isdom teeth extraction . * Family History: F ather: alive, Diabetic. M other: alive, GERD. * Medications: N one * Allergies: N .K.D.A. Objective: * Vitals: S hoe Size: 8.5, Wt:240lbs, Wt-k.86 kg, Ht: 66 in, Ht-cm: 167.64 cm, BMI:38.73Index, Body Surface Area: 2.25. * Examination: C onstitutional: Constitutional T he patient is awake, alert, well developed, well groomed and well nourished. D ermatologic: Skin findings: S kin is warm, dry, supple with no breaks in the skin. Ingrown Nail N ail is incurvated on the, lateral border of the left great toenail. V ascular: Dorsalis pedis pulse: 2 /4, bilateral. Posterior tibial pulse: 2 /4, bilateral. Capillary refill: l ess than 3 seconds. Edema: N o edema, bilateral. N eurologic: Gross sensation G ross sensation is intact to light touch.? M usculoskeletal: Muscle Strength M uscle strength is 5/5 in regards to dorsiflexion, plantarflexion, inversion, and eversion in bilateral lower extremities. ? Assessment: * Assessment: 1. I ngrowing nail - L60.0 (Primary) 2 . C ellulitis of left toe - L03.032? 3. P ain in left toe(s) - M79.675 Plan: * Treatment: * Procedure Codes: 1 1750 REMOVAL OF NAIL BED, Modifiers: TA * Follow Up: 1 Week (Reason: Post-op nail surgery check) * Billing Information: * Visit Code: 31046 Office Visit, New Pt., Level 3. Modifiers: 25 * Procedure Codes: 03541 REMOVAL OF NAIL BED. Modifiers: TA * Electronic signature of RUDY RICARDO DPM on 01/06/2025 at 06:00 PM CDT Sign off status: Pending * Provider: Charleen Ricardo DPM Date: Generated for Chelsie eric/Kaleb/Zackery on: 0 01/06/2025 06:00 PM CDT History and Physical Notes * HPI (History of Present Illness) Category Sub-Category Detail Notes Category Not es HPI New Complaint Patient presents for a new patient consultation., Patient complains of an issue to Left lateral GT. , Duration of problem has been going on for years. Painful to the touch. , Patient denies any injury. Patient states she did try to remove it herself and is afraid she cut the ingrown nail portion off of the nail and can't seem to get it out. , MA: beg Examination Category Sub-Category Detail Notes Category Not es Dermatologic Skin findings: Skin is warm, dr y, supple with no breaks in the skin Ingrown Nail Nail is incurvated o n the, lateral border of the left great toenail Neurologic Gross sensation Gross sensation is intact to light touch Vascular Dorsalis pedis pulse: 2/4, bilateral Edema: No edema, bilateral Capillary refill: less than 3 seconds Posterior tibial pulse: 2/4, bilateral Musculoskeletal Muscle Strength Muscle strength is 5/5 in regards to dorsiflexion, plantarflexion, inversion, and eversion in bilateral lower extremities Constitutional Constitutional The patient is a wake, alert, well developed, well groomed and well nourished
--- OUTSIDE RECORDS SUMMARY | 2025-01-06 18:01 | XMS_ITS | Clinical Summary ---
Author Organization [facility] Address [address] [place] [address] Care Team Providers Care Self Rising Flour Mixer Name Role Phone Unavailable Primary Care Provider Unavailabl e Allergies No known active allergies Medications norethindrone-e.es tradioL-iron (Lo Loestrin Fe) 1 mg-10 mcg (24)/10 mcg (2) tablet Activ e FLUoxetine (PROzac) 20 mg capsule Active Active Problems No known active problems Social History Tobacco Use Types Packs/Day Years Used Date Smoking Tobacco: Never Smokeless Tobacco: Never Alcohol Use Standard Drinks/Week Comments Never 0 (1 standard drink = 0.6 oz pur e alcohol) Comments Unknown Sex and Gender Information Value Date Recorded Sex Assigned at Not on file Legal Sex Female 8:42 PM PST Gender Identity Not on file Sexual Orientation Not on file Last Filed Vital Signs Vital Sign Reading Time Taken Comments Blood Pressure 107/69 04/17/2021 9:05 AM CDT Pulse 96 04/17/2021 9:05 AM CDT Temperature 36.4 C (97.6 F) 04/17/2021 9:05 AM CDT Respiratory Rate - - Oxygen Saturation - - Inhaled Oxygen Concentration - - Weight - - Height - - Body Mass Index - - Plan of Treatment Health Maintenance Due Date Last Done Comments Dental CBCT 10/19/2015 10/18/2012 Dental X-Ray: Full Mouth 01/30/2017 01/29/2014 Dental X-Ray: Bitewings 03/03/2021 09/02/2020 Dental Oral Exam 10/16/2021 04/17/2021, , 02/26/2020, Additional history exists Dental Prophylaxis 10/16/2021 04/17/2021, 0 09/02/2020, 02/26/2020, Additional history exists Dental X-Ray: Panoramic 04/07/2024 04/06/2021, 02/06 Meningococcal B Vaccine Aged Out No l onger eligible based on patient's age to complete this topic Procedures Procedure Name Priority Date/Time Associated Diagnosis Comments PROPHYLAXIS - ADULT Routine 04/17/2021 9 :00 AM CDT PERIODIC ORAL EVALUATION - ESTABLISHED PATIENT Routine 04/17/2021 9:00 AM CDT PANORAMIC RADIOGRAPHIC IMAGE Routine 04/06/2021 4:15 PM CDT INTRAORAL - COMPREHENSIVE SERIES OF RADIOGRAPHIC IMAGES Routine 01/29/2014 2:[address] CAPTURE AND INTERPRETATION WITH FIELD OF VIEW OF BOTH JAWS; WITH OR WITHOUT CRANIUM Routine 10/18/2012 2:00 AM CDT from Last 3 Months or Most Recently Relevant to Health Maintenance [facility]
--- OUTSIDE RECORDS SUMMARY | 2025-01-06 18:01 | XMS_ITS | Patient Health Record ---
Author Organization [facility] Address [address] [facility] [address] [place] [address] Care Team Providers Care Scholarship Counselor Name Role Phone SHIRA MUIR Primary Care Provider Allergies No Known Allergies Reason For Referral No Information Medications Medication SIG (Take, Route, Frequency, Duration) Notes Start Date End Date Status FLUoxetine HCl 20 MG 1 capsule Orally On ce a day Active Loestrin 1.5/30 (21) 1.5-30 MG-MCG 1 tablet Orally Once a day for 21 day(s) Active Cetirizine HCl 10 MG 1 tablet Orally Once a day Active Immunizations Vaccine Route Administration Date Status Comme nts FLUZONE Influenza Vaccine PFS Quad PF 2020 - 2021 IM Intramuscular 06/04/2021 Administered Halima Aguero ti 06/04/2021 11:25:00 AM > Patient tolerated well. Social History Tobacco Use: Social History Observation Description Date Details (start date - stop date) Never Smoker NA - NA Tobacco Use/Smoking Question Answer Notes Are you a nonsmoker Alcohol Screen (Audit-C) Question Answer Notes Did you have a drink containing alcohol in the p ast year? No Points 0 Interpretation Negative Sexual History Question Answer Notes Had sex in the past 12 months (vaginal, oral, or anal)? Yes with Women only Use protection? No Have you ever had a Sexually transmitted disease ? No Last menstrual period 05/12/2021 Tobacco use other than smoking: Question Answer Notes Are you an other tobacco user? No Problems Problem Type SNOMED Code ICD Code Onset Dates Problem Status W/U Status Risk Notes Problem 228225250 Encounter for immunization (Z23) Active confirmed Problem 13920807 Allergic rhinitis, unspecified seasonality, unspecified trigger (J30.9) Active confirmed Problem 71882407 Vitamin D deficiency (E55.9) Active confirmed Problem 19329444 Anxiety (F41.9) Active confirmed Problem 488667012 Mild intermitten t asthma without complication (J45.20) Active confirmed Problem 75208142 Sinus tachycardi a (R00.0) Active confirmed Problem 50195906 Decreased breath sounds (R06.89) Active confirmed Problem 65078104 Iron deficiency anemia, unspecified iron deficiency anemia type (D50.9) Active confirmed Problem 552505097 Adult general medical exam (Z00.00) Active confirmed Problem 719296601 Screening for depression (Z13.31) Active confirmed Problem 180302644 Alcohol screenin g (Z13.39) Active confirmed Plan Of Treatment Future Test Test Name Order Date VITAMIN B12 (927) 06/04/2021 Insurance Providers Payer Name Payer Address Payer Phone Subscriber Number Group Number Insured Name Patient Relationship to Insured Coverage Start Date Coverage End Date 6 [facility] ([employer] ) [address] [address] [place] [address] [id number] SUSI MORGAN Self - patient is the insured Medical (General) History Medical History History ICD Code OCD 2017 Surgical History Surgery Date(Month/Year) Tonsils, adenoids removed 2009 wisdom teeth removed 2017
--- OUTSIDE RECORDS SUMMARY | 2025-01-06 18:01 | XMS_ITS ---
Author Organization [facility] Address [address] [place], [place] [address] Care Team Providers Care Operational Assistant Name Role Phone Jarrett Dumont Unavailable Unavailable RUDY RICARDO Unavailable [phone] Allergies No Known Allergies REASON FOR VISIT Patient returns to the office following toenail surgery. The patient is doing well Encounters Encounter Location Date Provider Diagnosis [facility] [address] [place], [place] [id number] 05/28/2024 RUDY RICARDO Ingrowing nail L60.0 and Encounter for other specified surgical aftercare Z48.89 Assessments Encounter Date Diagnosis (ICD Code) Assessment Notes Treatment Notes Treatment Clinical Notes Section Notes 05/28/2024 Ingrowing nail (ICD-10 - L60.0) Post-op Matrixectomy The patient will continue foot soaks and covering with a dry bandage until drainage has stopped. The patient will monitor this area for any signs of recurrence and contact the office with any problems. Patient will follow-up on an as-needed basis. 05/28/2024 Encounter for other specified surgical aftercare (ICD-10 - Z48.89) Plan Of Treatment Treatment Notes Assessment Notes Ingrowing nail Post-op Matrixectomy The patient will continue foot soaks and covering with a dry bandage until drainage has stopped. The patient will monitor this area for any signs of recurrence and contact the office with any problems. Patient will follow-up on an as-needed basis. Next Appt Details Follow Up: prn, Reason: Progress Notes * Cheng MELVINOB:1994 (29 yo F)Acc No.[id number]:05/28/2024 Patient: Sandrine HERMAN Provider: Charleen Ricardo DPM :1995 A ge:29 Y S ex:Female Date:05/28/2024 [address] [id number] Subjective: * Chief Complaints: * 1 . Patient returns to the office following toenail surgery. The patient is doing well. * HPI: H PI: Follow Up Visit P atient presents for follow-up visit for nail surgery, left great, lateral side. Patient states she has had no pain. Patient denies and blood or drainage. Patient has no concerns at this time, MA: NETTE. * Medical History: * Surgical History: w isdom teeth extraction . * Family History: F ather: alive, Diabetic. M other: alive, GERD. * Medications: N one * Allergies: N .K.D.A. Objective: * Vitals: * Examination: D ermatologic: Ingrown Nail N ail surgery site is healing well. No signs of infection. Assessment: * Assessment: 1. I ngrowing nail - L60.0 (Primary) 2 . E ncounter for other specified surgical aftercare - Z48.89 Plan: * Treatment: * Procedure Codes: 9 9024 POSTOP FOLLOW-UP VISIT * Follow Up: p rn * Billing Information: * Visit Code: * Procedure Codes: 44068 POSTOP FOLLOW-UP VISIT. * Electronic signature of RUDY RICARDO DPM on 01/06/2025 at 06:00 PM CDT Sign off status: Pending * Provider: Charleen Ricardo DPM Date: Generated for Chelsie eric/Kaleb/Zackery on: 0 01/06/2025 06:00 PM CDT History and Physical Notes * HPI (History of Present Illness) Category Sub-Category Detail Notes Category Not es HPI Follow Up Visit Patient presents for follow-up visit for nail surgery, left great, lateral side. Patient states she has had no pain. Patient denies and blood or drainage. Patient has no concerns at this time, MA: NETTE Examination Category Sub-Category Detail Notes Category Not es Dermatologic Ingrown Nail Nail surgery sit e is healing well. No signs of infection
--- OUTSIDE RECORDS SUMMARY | 2025-01-06 18:01 | XMS_ITS | Patient Health Record ---
Author Organization [facility] Address [address] [place], [place] [address] Care Team Providers Care Tool And Gauge Inspector Name Role Phone Jarrett Dumont Unavailable Unavailable SNOOK, RUDY Unavailable [phone] Allergies No Known Allergies Reason For Referral No Information Vital Signs Height-cm 167.64 cm 05/17/2024 Weight-kg 108.86 kg 05/17/2024 Height 66 in 05/17/2024 Weight 240 lbs 05/17/2024 BMI 38.73 kg/m2 05/17/2024 Encounters Encounter Location Date Provider Diagnosis [facility] [address] [facility] [address] [place], [place] [id number] 05/17/2024 RUDY SNOOK Ingrowing nail L60.0 ; Cellulitis of left toe L03.032 and Pain in left toe(s) M79.675 [facility] [place] [address] [place], [place] [id number] 05/28/2024 RUDY SNOOK Ingrowing nail L60.0 and Encounter for other specified surgical aftercare Z48.89 Assessments Encounter Date Diagnosis (ICD Code) Assessment Notes Treatment Notes Treatment Clinical Notes Section Notes 05/17/2024 Cellulitis of left toe (ICD-10 - L03.032) 05/17/2024 Ingrowing nail (ICD-10 - L60.0) Matrixectomy [...] of the left great toenail was treated 05/28/2024 Ingrowing nail (ICD-10 - L60.0) Post-op Matrixectomy The patient will continue foot soaks and covering with a dry bandage until drainage has stopped. The patient will monitor this area for any signs of recurrence and contact the office with any problems. Patient will follow-up on an as-needed basis. 05/28/2024 Encounter for other specified surgical aftercare (ICD-10 - Z48.89) 05/17/2024 Pain in left toe(s) (ICD-10 - M79.675) Plan Of Treatment No Information Insurance Providers Payer Name Payer Address Payer Phone Subscriber Number Group Number Insured Name Patient Relationship to Insured Coverage Start Date Coverage End Date [facility] ([facility]) ATTN CLAIMS [address] [place] [address] [id number] Sandrine Melvin Self - patient is the insured Medical (General) History Surgical History Surgery Date(Month/Year) wisdom teeth extraction
--- OUTSIDE RECORDS SUMMARY | 2025-01-06 18:01 | XMS_ITS | Patient Health Record ---
Author Organization [facility] Billing Info Address [address] [facility] [place] [address] Care Team Providers Care Renal Medicine Physician Name Role Phone LANRE FARLEY [phone] Allergies No Known Allergies Reason For Referral No Information Medications Medication SIG (Take, Route, Frequency, Duration) Notes Start Date End Date Status Lo Loestrin Fe 1 MG-10 MCG / 10 MCG 1 tablet Orally Once a day for 90 days daily Active Zyrtec Allergy daily Activ e Hydrocodone-Acetaminop hen 5-325 MG 1 tablet as needed Orally every 6 hrs for 7 day(s) 12/07/2021 Not-Taking Fluoxetine HCl 20 MG 1 tablet Orally Onc e a day for 30 day(s) 07/28/2021 Active Fluoxetine 20mg daily Active Social History Tobacco Status: Question Answer Notes Patient is a non tobacco user Problems Problem Type SNOMED Code ICD Code Onset Dates Problem Status W/U Status Risk Notes Problem 32951032 Secondary dysmenorrhea (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) Active confirmed Problem 258584041 Encounter for gynecological examination (Z01.419) Active confirmed Problem 4781956 Surveillance for control, oral contraceptives (Z30.41) Active confirmed Problem 28155055 Pelvic pain (R10.2) Active confirmed Plan Of Treatment Pending Test Test Name Order Date URINALYSIS, DIP STICK/TABLET REAGENT; NON-AUTOMATED W/O MICROSCOPY (91723) 10/13/2021 Insurance Providers Payer Name Payer Address Payer Phone Subscriber Number Group Number Insured Name Patient Relationship to Insured Coverage Start Date Coverage End Date [employer] [address] [place] [id number] Sandrine Woodward Self - patient is the insured 2 2 Medical (General) History Medical History History ICD Code Anemia - very mild Asthma - very mild OCD Surgical History Surgery Date(Month/Year) Robotic diag lap w/ excision of endo 05/2022
== END 2025-01-06 15:38 | disposition home or self-care (01) ==
PROVIDERS: Emergency Provider Emergency Medicine; PCP Internal Medicine
DX: G43.909 Migraine, unspecified, not intractable, without status migrainosus (principal)
CPT/HCPCS: 96372; 99284; J1790; J1885; J2765

== ENCOUNTER 2025-01-31 12:13 | Outpatient (CLI) | payer OTHER, SELFPAY | END 2025-01-31 12:14 | disposition home or self-care (01) | LOC: ANHSURGERY 12:19 | PROVIDERS: PCP Internal Medicine; Visit Provider Obstetrics & Gynecology | DX: Z01.812 Encounter for preprocedural laboratory examination (principal); N94.6 Dysmenorrhea, unspecified | CPT/HCPCS: 36415; 86850; 86900; 86901 ==

== ENCOUNTER 2025-01-31 12:23 | Outpatient (CLI) | payer OTHER, SELFPAY ==
[2025-01-31 12:56] LABS: Basophils Percent Auto 0.4 % (0.2-1.2); Eosinophils Absolute Auto 0.1 K/mm3 (0-0.3); Eosinophils Percent Auto 0.5 % (0-4.4); Hematocrit 42.9 % (37.0-47.0); Hemoglobin 14.2 g/dL (12.0-15.0); Immature Granulocyte Absolute 0.04 K/mm3 (0.00-0.031); Immature Granulocyte Percent A 0.4 % (0-0.5); Lymphocytes Absolute Auto 2.23 K/mm3 (0.9-3.2); Lymphocytes Percent Auto 22.7 % (18.3-44.2); Mean Corpuscular HGB Conc 33.1 g/dl (32-36); Mean Corpuscular Hemoglobin 27.6 pg (26-34); Mean Corpuscular Volume 83.5 fl (80-100); Mean Platelet Volume 10.2 fl (7.4-10.4); Monocytes Absolute Auto 0.6 K/mm3 (0.1-0.6); Monocytes Percent Auto 6.3 % (2.6-8.5); Neutrophils Absolute Auto 6.9 K/mm3 (1.3-6.7); Neutrophils Percent Auto 69.7 % (45.5-73.1); Platelet Count Result 308 k/mm3 (150-375); Red Blood Count 5.14 M/mm3 (4.2-5.4); Red Cell Distribution Width 14.1 % (11.5-14.5); White Blood Count 9.8 K/mm3 (4.5-10.0)
[2025-01-31 13:35] LABS: Alanine Aminotransferase 34 U/L (6-35); Albumin Level 4.2 g/dL (3.5-5.1); Alkaline Phosphatase 62 U/L (38-126); Amylase 68 U/L (30-110); Anion Gap 10 mmol/L (4-12); Aspartate Amino Transferase 30 U/L (14-36); Bilirubin,Total 0.8 mg/dL (0.2-1.3); Blood Urea Nitrogen 6 mg/dL (7-17); CRP 1.8 mg/dL (<1.0); Calcium 9.3 mg/dL (8.4-10.2); Carbon Dioxide 24 mmol/L (22-30); Chloride 104 mmol/L (98-107); Estimated Glomerular Filt Rate > 60; Glucose 114 mg/dL (65-110); Potassium 3.8 mmol/L (3.4-5.0); Sodium 138 mmol/L (137-145); Total Protein 7.4 g/dL (6.3-8.2)
== END 2025-01-31 12:24 | disposition home or self-care (01) ==
PROVIDERS: PCP Internal Medicine; Visit Provider Internal Medicine
DX: Z79.899 Other long term (current) drug therapy (principal)
CPT/HCPCS: 36415; 80053; 82150; 85025; 86140; 86850; 86900; 86901

== ENCOUNTER 2025-02-06 00:11 | Day surgery (SDC) | payer OTHER, SELFPAY ==
[2025-01-30 13:17] VITALS: BMI 40.4
--- NOTE | 2025-01-30 13:27 | PC.NURSE ---
Report to the Outpatient Waiting Room, entrance under the green pavilion located off [facility], at time _0830_ on date _[id number]_. Planned Procedure Time: _1030_.? Time changes happen often and if your time is changed the preop area will call you the afternoon before. - You and your visitor will be asked to self-screen and do not enter if you have any COVID symptoms. Please call surgeon if you need to reschedule. - A mask is optional within the hospital at this time. Patients may have clear liquids (water, carbonated beverages, clear teas, apple juice) until 3 hours prior to surgery with a maximum of 20 ounces. - No food from midnight until time of surgery and no smoking, or chewing tobacco (or any form of nicotine). No chewing gum, candy or mints. Take only the following medications with a SIP of water on the morning of surgery: ___None___ DO NOT STOP ANY OF YOUR OTHER PRESCRIPTION MEDICATIONS PRIOR TO SURGERY EXCEPT THE FOLLOWING Hold all vitamins and supplements for 3 days per anesthesiologist. Medications to discontinue per physician Date to take last edzr__[id number]__ Please no make-up, nail uruguayan, hairspray, perfume, deodorant, or body powder the day of surgery.? No jewelry (including any body piercings) or valuables the day of surgery, leave them at home.? Please take a shower or bath the night before, or the morning of, surgery with an antibacterial soap.? Wear comfortable, loose fitting clothing.? - Jewelry must be removed prior to entering the operating room.? Rings and piercings that are not removed may be cut off. - The hospital will not accept responsibility for valuables.? - Please leave all valuables, including medications, at home the day of surgery. If you are going home after surgery, a licensed tow driver must drive you home.? - NO public transportation without another adult if you receive anesthesia. - We recommend that an adult stay with you for 24 hours following discharge. - We also recommend that you do not drive, make important decision, drink alcoholic beverages, or take any drugs that were not prescribed by your health care provider for at least 24 hours after your discharge time. Follow any additional instructions given to you from your surgeon. Telephone instructions given to __Alex__and asked if any additional questions and then verbalized understanding. Patient advised to call surgeon office or pre surgery nurse liaison [phone] if any additional questions.
[2025-02-06] VITALS (11 sets, daily range): BP systolic 122–141; BP diastolic 64–86; PULSE 98–118; RESP 12–20; TEMP 36.6–37.2; O2SAT 95–100
--- OUTSIDE RECORDS SUMMARY | 2025-02-06 00:13 | XMS_ITS | Clinical Summary ---
Author Organization [facility] Address [facility] [place] [address] Care Team Providers Care Nurse Head Name Role Phone Jarrett Dumont MD Primary Care Provider [phone] Allergies Active Allergy Reactions Criticality Noted Date Comments Quetiapine Other (see comment) 01/26/2025 Not tolerating medication and patient wanting an alternative. Medications Cholecalciferol (VITAMIN D) 50 MCG (1999 UT) CapIndications:Vit okeefe D deficiency Take 2,000 Units by mouth daily. 4 Active SLYND 4 MG Tab Take 1 tablet by mouth daily. 4 Active dicyclomine (BENTYL) 20 MG tabletIndications: Diarrhea, unspecified type Take 1 tablet (20 mg total) by mouth every 6 (six) hours as needed (cramping, loose stools). 90 tablet 1 5 Active Multiple Vitamin (MULTIVITAMIN ADULT) Tab Active fish oil (OMEGA-3 FATTY ACID) 1000 MG Cap capsule Take 1 capsule (1,000 mg total) by mouth 2 (two) times daily. Active cetirizine (ZYRTEC) 10 MG tablet Take 1 tablet (10 mg total) by mouth daily. Active ondansetron (ZOFRAN-ODT) 4 MG disintegrating tabletIndications: Epigastric pain,Nausea Take 1 tablet (4 mg total) by mouth every 6 (six) hours as needed for Nausea. 30 tablet 2 5 Active rimegepant (NURTEC) 75 MG disintegrating tabletIndications: Migraine without aura and without status migrainosus, not intractable Take 1 tablet (75 mg total) by mouth daily as needed. Max of 1 tablet (75 mg) in 24 hours. 16 tablet 6 5 Active rizatriptan (MAXALT) 5 MG tabletIndications: Migraine without aura and without status migrainosus, not intractable Take 1 tablet (5 mg total) by mouth as needed for Migraine. May repeat in 2 hours if needed times one dose 8 tablet 5 5 Active doxepin (SINEQUAN) 10 MG capsuleIndications :Insomnia, unspecified type Take 1 capsule (10 mg total) by mouth nightly at bedtime. 30 capsule 1 5 Active SUMAtriptan (IMITREX) 25 MG tabletIndications: Migraine without aura and without status migrainosus, not intractable Take 1 tab by mouth as needed for migraine. May repeat dose in 2 hours. Max of 8 tablets (200 mg) in a 24 hour period. 8 tablet 1 5 025 Discontin ued(Thera py completed ) ubrogepant (UBRELVY) 100 MG tabletIndications: Migraine without aura and without status migrainosus, not intractable Take 1 tablet (100 mg total) by mouth 2 (two) times daily as needed for Migraine. Max of 2 tablets (200 mg) in 24 hours 10 tablet 1 5 025 Discontin ued(Alter josh therapy) traZODone (DESYREL) 50 MG tabletIndications: Insomnia, unspecified type Take 1 tab by mouth 1 hour before bedtime. Increase to 2 tabs if needed. 60 tablet 1 5 025 Discontin ued(Thera py completed ) QUEtiapine (SEROQUEL) 50 MG tabletIndications: Insomnia, unspecified type Take 1 tablet (50 mg total) by mouth nightly at bedtime. 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 Autism (HHS/HCC) 12/05/2024 Migraine without aura and wi thout status migrainosus, not intractable 12/05/2024 Abdominal pain 04/23/2024 Liver lesion 04/23/2024 PCOS (polycystic ovarian syndrome) 10/15/2022 Seasonal allergies 02/18/2022 Adenomyosis 12/09/2021 Fatty (change of) liver, not elsewhere classifie d 12/09/2021 Encounters Date Type Department Care Team Description 02/04/2025 5:22 PM CDT Hospital Encounter [facility] Sleep Lab [address] [place] [address] Jarrett Dumont MD Insomnia With Sleep Apnea 02/04/2025 Travel 01/31/2025 Scan [facility] Scanned, [facility] (SCAN) 01/30/2025 Telephone [place] [address] [facility] [address] [place] [address] Jarrett Dumont MD Lab Order 01/26/2025 Telephone [place] [address] [address] [facility] [address] [place] [address] Jarrett Dumont MD Medication Information 01/25/2025 Telephone [place] [address] [address] [facility] [address] [place] [address] Jarrett Dumont MD Referral 01/24/2025 MyChart Message Enc [place] [address] [address] [place] [address] [address] [place] [address] Jarrett Dumont MD Seroquel 01/16/2025 1:40 PM CDT Office Visit [place] [address] [place] [address] [address] [place] [address] Jarrett Dumont MD Follow Up; Sleep Problem (Ongoing a while worse now that she has a migraine ); Migraine (Pt states she has not received the medication ubervly NO pa started ) 01/16/2025 Telephone [place] [address] [place] [address] [address] [place] [address] Jarrett Dumont MD Prior Authorization 01/16/2025 Travel 01/11/2025 MyChart Message Enc [place] [address] [facility] [address] [place] [address] Carole Ray, EMBOSSING TOOL SETTER Please help 01/10/2025 2:40 PM CDT Office Visit [place] [address] [facility] [address] [place] [address] Carole Ray, EMBOSSING TOOL SETTER Migraine 01/10/2025 Travel 01/03/2025 Travel 12/24/2024 11:19 AM CDT - 12/24/2024 11:59 PM CDT Hospital Encounter [facility] [address] [place] [address] Jarrett Dumont MD Lipe, Brooke M, RD Discharge Disposition: Home or Self Care (Routine Discharge) 12/24/2024 Travel 12/05/2024 2:20 PM CDT Office Visit [place] [address] [facility] [address] [place] [address] Carole Ray NP Nausea; Diarrhea 12/05/2024 Travel 12/04/2024 Telephone [place] [address] [facility] [address] [place] [address] Jarrett Dumont MD Error from Last 3 Months Immunizations Immunization Administration Dates Next Due Dtap (Acel-Immune) 12/29/2000 HPV4 (Gardasil) 12/25/2012,08/28/2012,06/26/2012 Hepatitis A (Havrix [address]) 07/29/2014, 014 Hepatitis B Pediatric 08/25/2006 Influenza Adult (Generic) 04/22/2024,,04/19/2020,06/26 MMR (MMRII) 12/29/2000 Meningococcal (Menomune) 01/30/2010 PFIZER COVID-19 (ORIGINAL FO RMULATION, PURPLE CAP) mRNA, LNP-S, PF, 30 MCG/0.3 ML DOSE 04/22/2024,05/19/2021,11/14/2020,10/24 Pneumococcal (Pneumovax 23) 03/16/2022 Polio IPV (Ipol) 12/29/2000 Td, Adsorbed, Preservative F ree, Adult Use, Lf Unspecified 01/21/2010 Tdap (Boostrix) 05/28/2024 Family History Medical History Relation Comments Diabetes Father Hypertension Father Diabetes Maternal Grandmother Diabetes Paternal Grandfather Relation Status Comments Father Maternal Grandmother Paternal Grandfather Social History Tobacco Use Types Packs/Day Years Used Date Smoking Tobacco: Never Smokeless Tobacco: Never Tobacco Cessation:Counseling Given: Yes Comments:counseled by Dr Dumont Alcohol Use Standard Drinks/Week Comments Never 0 (1 standard drink = 0.6 oz pur e alcohol) PHQ-2 Answer Date Recorded Patient Health Questionnaire-2 Score 1 01/10/2025 Comments No Sex and Gender Information Value Date Recorded Sex Assigned at Female 12/05/2024 2:18 PM CDT Legal Sex Female 1:15 PM CDT Gender Identity Female 12/05/2024 2:18 PM CDT Sexual Orientation Not on file Last Filed Vital Signs Vital Sign Reading Time Taken Comments Blood Pressure 119/79 01/16/2025 1:42 PM CDT Pulse 117 01/16/2025 1:42 PM CDT Temperature 36 C (96.8 F) 01/16/2025 1:42 PM CDT Respiratory Rate 16 01/16/2025 1:42 PM CDT Oxygen Saturation 98% 01/16/2025 1:42 PM CDT Inhaled Oxygen Concentration - - Weight 113.4 kg (250 lb) 01/16/2025 1:42 PM CDT Height 167.6 cm (5' 6) 01/16/2025 1:42 PM CDT Body Mass Index 40.35 01/16/2025 1:42 PM CDT Plan of Treatment Upcoming Encounters Date Type Department Care Team (Late st Contact Info) Description 02/22/2025 1:20 PM CDT Office Visit [facility] - [address] [place] [address] Jarrett Dumont MD [address] [facility] [address] [place] [address] 05/14/2025 9:00 AM CDT Office Visit [facility] - [place] [address] [facility] [address] [place] [address] Jarrett Dumont MD [address] [facility] [address] [place] [address] Health Maintenance Due Date Last Done Comments Hepatitis B Vaccines (2 of 3 - 3-dose series) 09/22/2006 08/25/2006 COVID-19 Vaccine (2023- season) 2024 04/22/2024, 04/29/2022, 05/19/2021, Additional history exists Annual Physical 05/28/2025 05/28/2024, 03/16/2022 Cervical Cancer Screening Pap Smear (Age 21 to 29) Every 3 Years 06/27/2027 06/27/2024, 10/19/2022, 10/13/2021 Cervical Cancer Screening 06/27/2027 DTaP, Tdap and Td Vaccines (4 - Td or Tdap) 05/28/2034 05/28/2024, 01/21/2010, 12/29/2000 Meningococcal Vaccine Aged Out 01/30/2010 No layla azeb eligible based on patient's age to complete this topic HPV Vaccines Completed 12/25/2012, 08/09, 06/26/2012 Hepatitis C Completed 03/16/2022 Pneumococcal Vaccine: Pediatrics (0 to 5 Years) and At-Risk Patients (6 to 49 Years) Aged Out 03/16/2022 No longer eligible based on patient's age to complete this topic PHQ-2 (Physician [place]) Completed 01/10/2025 Meningococcal B Vaccine Aged Out No l onger eligible based on patient's age to complete this topic RSV Immunizations Under 20 Months Aged Out No longer eligible based on patient's age to complete this topic Procedures Procedure Name Priority Date/Time Associated Diagnosis Comments OUTSIDE LAB (SCAN ORDER) 01/31/2025 OUTSIDE LAB (SCAN ORDER) 01/31/2025 COLLECTION VENOUS BLOOD VENIPUNCTURE Routine 01/16/2025 2:06 PM CDT Drug therapy HEPATITIS C ANTIBODY Routine 03/16/2022 11:47 AM CDT Annual physical exam General medical exam OUTSIDE CYTOPATH CERV/VAG INTERPRET (PAP) 10/13/2021 from Last 3 Months or Most Recently Relevant to Health Maintenance Results * OUTSIDE LAB (SCAN ORDER) (01/31/2025) Only the most recent of2 resultswithin the time period is included. 01/31/2025 [facility] Scanned SCANNING Final Resu lt * HEPATITIS C ANTIBODY (03/16/2022 11:47 AM CDT) HEPATITIS C AB NON-REACTI VE NON-REACT THAO 03/16/2022 10:08 PM CDT [facility] Comment: ANTIBODIES TO HCV NOT DETECTED. DOES NOT EXCLUDE THE POSSIBILITY OF EXPOSURE TO HCV. 03/16/2022 11:4 7 AM CDT us Jarrett Dumont MD LABORATORY Final Result [facility] [address] [place] [address], [id number] * PAP SMEAR WITH HPV (10/13/2021) 10/13/2021 Narrative 10/13/2021 Ordered by an unspecified provider. us Documents Scanned SCANNING Final Result from Last 3 Months or Most Recently Relevant to Health Maintenance Insurance Care Teams Nurse Head Relationship Specialty Start Date End Date Jarrett Dumont MD [address] [facility] [address] [place] [address] PCP - General INTERNAL MEDICINE 02/18/22
--- OUTSIDE RECORDS SUMMARY | 2025-02-06 00:13 | XMS_ITS | Encounter Summary ---
Author Organization [facility] Address [address] [place] [address] Care Team Providers Care Sandblast Operator Name Role Phone Jarrett Dumont MD Primary Care Provider [phone] Encounter Details Date Type Department Care Team (Late st Contact Info) Description 05/29/2024 MyChart Message Enc [facility] [address] [phone] Jarrett Dumont MD [address] [place] [address] [phone] Vitamin D Social History Tobacco Use Types Packs/Day Years Used Date Smoking Tobacco: Never Smokeless Tobacco: Never Comments:counseled by Dr Starla servin Alcohol Use Standard Drinks/Week Comments Never 0 (1 standard drink = 0.6 oz pur e alcohol) PHQ-2 Answer Date Recorded PHQ-2 Score - If the patient scores above 3, please move on to questions 3-9 0 03/16/2022 Comments No Sex and Gender Information Value Date Recorded Sex Assigned at Female 12/05/2024 2:18 PM CDT Legal Sex Female 1:15 PM CDT Gender Identity Female 12/05/2024 2:18 PM CDT Sexual Orientation Not on file documented as of this encounter Plan of Treatment Upcoming Encounters Date Type Department Care Team (Late st Contact Info) Description 02/22/2025 1:20 PM CDT Office Visit [facility] - [address] [place] [address] Jarrett Dumont MD [address] [facility] [address] [place] [address] 05/14/2025 9:00 AM CDT Office Visit [facility] Multispecialty Care - [place] [address] [address] [place] [address] Jarrett Dumont MD [facility] [address] [address] documented as of this encounter Visit Diagnoses Not on filedocumented in this encounter Care Teams Sandblast Operator Relationship Specialty Start Date End Date Jarrett Dumont MD [address] [place] [address] PCP - General INTERNAL MEDICINE 02/18/22 documented as of this encounter
--- OUTSIDE RECORDS SUMMARY | 2025-02-06 00:15 | XMS_ITS | Encounter Summary ---
Author Organization [facility] Address [address] [place] [address] Care Team Providers Care Boat Loader Helper Name Role Phone Jarrett Dumont MD Primary Care Provider [phone] Encounter Details Date Type Department Care Team (Late st Contact Info) Description 07/05/2022 [facility] Message Enc [address] [place] [address] [facility], [facility] Provider appt Social History Tobacco Use Types Packs/Day Years [...] PM CDT Sexual Orientation Not on file COVID-19 Exposure Response Date Recorded In the last 10 days, have yo u been in contact with someone who was confirmed or suspected to have Coronavirus/COVID-19? No / Unsure 06/30/2022 3:54 PM FARMER AND GRAZIER documented as of this encounter Plan of Treatment Upcoming Encounters Date Type Department Care Team (Late st Contact Info) Description 02/22/2025 1:20 PM CDT Office Visit [facility] - [place] [address] [address] [place] [address] Jarrett Dumont MD [facility] [address] [address] 05/14/2025 9:00 AM CDT Office Visit [facility] Mult[facility] Care - [place] [address] [address] [place] [address] Jarrett Dumont MD [facility] [address] [address] documented as of this encounter Visit Diagnoses Not on filedocumented in this encounter Care Teams Boat Loader Helper Relationship Specialty Start Date End Date Jarrett Dumont MD [address] [place] [address] PCP - General INTERNAL MEDICINE 02/18/22 documented as of this encounter
--- OUTSIDE RECORDS SUMMARY | 2025-02-06 00:15 | XMS_ITS | Encounter Summary ---
Author Organization [facility] Address [address] [place] [address] Care Team Providers Care Quantitative Research Analyst Name Role Phone Jarrett Dumont MD Primary Care Provider [phone] Reason for Referral * Sleep Lab (Routine) - Closed Specialty Diagnoses / Procedures Referred By Estee craig Referred To Contact Diagnoses Insomnia, unspecified type Procedures Home Sleep Study - [facility] ([id number]) Jarrett Dumont MD [address] [address] Phone: tel: fax: Referral ID Status Reason Start Date Expiration Date Visits Re quested Visits Authorized [id number] Closed 01/26/2025 01/26/2026 1 1 Reason for Visit * Reason Comments Insomnia With Sleep Apnea * Sleep Lab (Routine) - Closed Specialty Diagnoses / Procedures Referred By Estee craig Referred To Contact Diagnoses Insomnia, unspecified type Procedures Home Sleep Study - [facility] ([id number]) Jarrett Dumont MD [address] [address] Phone: tel: fax: Referral ID Status Reason Start Date Expiration Date Visits Re quested Visits Authorized [id number] Closed 01/26/2025 01/26/2026 1 1 Encounter Details Date Type Department Care Team (Latest Contact Info) Description 02/04/2025 5:22 PM CDT Hospital Encounter [facility] Sleep Lab [address] [place] [address] Jarrett Dumont MD [facility] [address] [address] Insomnia With Sleep Apnea Social History Tobacco Use Types Packs/Day Years [...] on file documented as of this encounter Discharge Instructions * Patient Instructions* CHRISTOPHER Christopher - 02/04/2025 6:15 PM CDT [facility]HSS INSTRUCTIONS AND DEVICE MAILED TO PATIENT documented in this encounter Plan of Treatment Upcoming Encounters Date Type Department Care Team (Late st Contact Info) Description 02/22/2025 1:20 PM CDT Office Visit [address] [address] Jarrett Dumont MD [facility] [address] [address] 05/14/2025 9:00 AM CDT [facility] [place] [address] [address] [place] [address] Jarrett Dumont MD [address] [address] Scheduled Orders Name Type Priority Associated Diagnoses Orde r Schedule Home Sleep Study - [facility] ([id number]) Sleep Center Routine Insomnia, unspecified type Once for 1 Occurrences starting 02/04/2025 until 02/04/2025 documented as of this encounter Visit Diagnoses Diagnosis Insomnia, unspecified type documented in this encounter Care Teams Quantitative Research Analyst Relationship Specialty Start Date End Date Jarrett Dumont MD [address] [address] PCP - General INTERNAL MEDICINE 02/18/22 documented as of this encounter
--- OUTSIDE RECORDS SUMMARY | 2025-02-06 00:15 | XMS_ITS | Encounter Summary ---
Author Organization [facility] Address [address] [place] [address] Care Team Providers Care Fire Chief'S Aide Name Role Phone Jarrett Dumont MD Primary Care Provider [phone] Encounter Details Date Type Department Care Team (Latest Contact Info) Description 08/26/2022 [facility] Message Enc [facility] Multispecialty Care - [place] [address] [address] [place] [address] Jarrett Dumont MD [address] [place] [address] [place], [place] [id number] November Social History Tobacco Use Types Packs/Day Years [...] suspected to have Coronavirus/COVID-19? No / Unsure 08/18/2022 4:05 PM WASH HELPER documented as of this encounter Plan of Treatment Upcoming Encounters Date Type Department Care Team (Late st Contact Info) Description 02/22/2025 1:20 PM CDT Office [facility] [address] [address] Jarrett Dumont MD [address] [place] [address] 05/14/2025 9:00 AM CDT [facility] [address] [address] Jarrett Dumont MD [address] [place] [address] documented as of this encounter Visit Diagnoses Not on filedocumented in this encounter Care Teams Fire Chief'S Aide Relationship Specialty Start Date End Date Jarrett Dumont MD [address] [place] [address] PCP - General INTERNAL MEDICINE 02/18/22 documented as of this encounter
--- OUTSIDE RECORDS SUMMARY | 2025-02-06 00:15 | XMS_ITS | Patient Health Record ---
Author Organization [facility] Address [address] [place], [place] [id number] Care Team Providers Care Library Historian Name Role Phone Jarrett Dumont Unavailable Unavailable SNOOK, RUDY Unavailable [phone] Allergies No Known Allergies Reason For Referral No Information Vital Signs Height-cm 167.64 cm 05/17/2024 Weight-kg 108.86 kg 05/17/2024 Height 66 in 05/17/2024 Weight 240 lbs 05/17/2024 BMI 38.73 kg/m2 05/17/2024 Encounters Encounter Location Date Provider Diagnosis [facility] [address] [facility] [address] [place], [place] [id number] 05/17/2024 RUDY SNOOK Ingrowing nail L60.0 ; Cellulitis of left toe L03.032 and Pain in left toe(s) M79.675 [facility] [place] [address] [place], [place] [id number] 05/28/2024 RUDY SNOOK Ingrowing nail L60.0 and [...] Insured Coverage Start Date Coverage End Date [facility] ([facility]) ATTN CLAIMS [address] [place] [address] [id number] Sandrine Melvin Self - patient is the insured Medical (General) History Surgical History Surgery Date(Month/Year) wisdom teeth extraction
--- OUTSIDE RECORDS SUMMARY | 2025-02-06 00:15 | XMS_ITS | Encounter Summary ---
Author Organization [facility] Address [address] [place] [address] Care Team Providers Care Metal Riveter Name Role Phone Jarrett Dumont MD Primary Care Provider [phone] Encounter Details Date Type Department Care Team (Late st Contact Info) Description 08/24/2022 MyChart Message Enc [facility] Medical Group Multispecialty Care - [place] [address] [address] [place] [address] Jarrett Dumont MD [address] [place] [address] [place], [place] [phone] Referral number Social History Tobacco Use Types Packs/Day Years [...] Coronavirus/COVID-19? No / Unsure 08/18/2022 4:05 PM BATH ATTENDANT documented as of this encounter Plan of Treatment Upcoming Encounters Date Type Department Care Team (Late st Contact Info) Description 02/22/2025 1:20 PM CDT Office Visit [facility] - [address] [place] [address] [address] Jarrett Dumont MD [address] [place] [address] 05/14/2025 9:00 AM CDT [facility] - [address] [place] [address] [address] Jarrett Dumont MD [address] [place] [address] documented as of this encounter Visit Diagnoses Not on filedocumented in this encounter Care Teams Metal Riveter Relationship Specialty Start Date End Date Jarrett Dumont MD [address] [place] [address] PCP - General INTERNAL MEDICINE 02/18/22 documented as of this encounter
--- OUTSIDE RECORDS SUMMARY | 2025-02-06 00:15 | XMS_ITS | Encounter Summary ---
Author Organization [facility] Address [address] [place] [address] Care Team Providers Care Er Physician Name Role Phone Jarrett Dumont MD Primary Care Provider [phone] Encounter Details Date Type Department Care Team (Late st Contact Info) Description 08/08/2022 MyChart Message Enc [facility] Multispecialty Care - [place] [address] [address] [place] [address] Jarrett Dumont MD [address] [place] [address] [place], [place] [phone] Referrals Social History Tobacco Use Types Packs/Day Years [...] suspected to have Coronavirus/COVID-19? No / Unsure 08/06/2022 9:58 AM [employer] documented as of this encounter Plan of Treatment Upcoming Encounters Date Type Department Care Team (Late st Contact Info) Description 02/22/2025 1:20 PM CDT Office Visit [facility] [place] - [address] [address] Jarrett Dumont MD [address] [place] [address] 05/14/2025 9:00 AM CDT [facility] [facility] [address] [address] Jarrett Dumont MD [address] [place] [address] documented as of this encounter Visit Diagnoses Not on filedocumented in this encounter Care Teams Er Physician Relationship Specialty Start Date End Date Jarrett Dumont MD [address] [place] [address] PCP - General INTERNAL MEDICINE 02/18/22 documented as of this encounter
--- OUTSIDE RECORDS SUMMARY | 2025-02-06 00:15 | XMS_ITS | Encounter Summary ---
Author Organization [facility] Address [address] [place] [address] Care Team Providers Care Inspector Plumbing Name Role Phone Jarrett Dumont MD Primary Care Provider [phone] Encounter Details Date Type Department Care Team (Late st Contact Info) Description 08/13/2022 MyChart Message Enc [facility] Medical Group Multispecialty Care - [place] [address] [address] [place] [address] Jarrett Dumont MD [address] [place] [address] [place], [place] [id number] Nausea? Social History Tobacco Use Types Packs/Day Years [...] Coronavirus/COVID-19? No / Unsure 08/06/2022 9:58 AM CEMENTER OIL WELL documented as of this encounter Plan of Treatment Upcoming Encounters Date Type Department Care Team (Late st Contact Info) Description 02/22/2025 1:20 PM CDT Office Visit [facility] [place] - [address] [address] Jarrett Dumont MD [address] [place] [address] 05/14/2025 9:00 AM CDT [facility] [place] - [address] [address] Jarrett Dumont MD [address] [place] [address] documented as of this encounter Visit Diagnoses Not on filedocumented in this encounter Care Teams Inspector Plumbing Relationship Specialty Start Date End Date Jarrett Dumont MD [address] [place] [address] PCP - General INTERNAL MEDICINE 02/18/22 documented as of this encounter
--- OUTSIDE RECORDS SUMMARY | 2025-02-06 00:15 | XMS_ITS | Clinical Summary ---
Author Organization [facility] Health Address [address] [place] [address] Care Team Providers Care Supervisor Shaving And Splitting Name Role Phone Unavailable Primary Care Provider [...] exists Dental X-Ray: Panoramic 04/07/2024 04/06/2021, 02/06 Procedures Procedure Name Priority Date/Time Associated Diagnosis [...] Most Recently Relevant to Health Maintenance Insurance [facility]
--- OUTSIDE RECORDS SUMMARY | 2025-02-06 00:15 | XMS_ITS | Encounter Summary ---
Author Organization [facility] Address [address] [place] [address] Care Team Providers Care Executive Consultant Name Role Phone Jarrett Dumont MD Primary Care Provider [phone] Encounter Details Date Type Department Care Team (Late st Contact Info) Description 01/11/2025 MyChart Message Enc [facility]ty [facility] [place] [address] [place] [address] Carole Ray, FOUR ROLL CALENDER OPERATOR [address] [place], [place] [phone] Please help Social History Tobacco Use Types Packs/Day Years [...] Description 02/22/2025 1:20 PM CDT Office Visit [facility]ty [facility] [address] [place], [place] [phone] [place] [address] [place] [address] 05/14/2025 9:00 AM CDT Office Visit [facility] Medical Group Multispecialty Care - [place] [address] [address] [address] [place] [address] Jarrett Dumont MD [facility] [address] documented as of this encounter Visit Diagnoses Not on filedocumented in this encounter Care Teams Executive Consultant Relationship Specialty Start Date End Date Jarrett Dumont MD [address] [place] [address] PCP - General INTERNAL MEDICINE 02/18/22 documented as of this encounter
--- OUTSIDE RECORDS SUMMARY | 2025-02-06 00:15 | XMS_ITS | Encounter Summary ---
Author Organization [facility] Address [address] [place] [address] Care Team Providers Care Landscaping And Groundskeeping Laborer Name Role Phone Jarrett Dumont MD Primary Care Provider [phone] Reason for Visit * Reason Comments Lab (SCAN) Encounter Details Date Type Department Care Team (Latest Contact Info) Description 01/31/2025 Scan HEALTH INFO [facility] Scanned, Doc Med Group Lab (SCAN) Social History Tobacco Use Types Packs/Day Years [...] Description 02/22/2025 1:20 PM CDT Office Visit [facility] [place] Medical [facility] [place] [facility] Multispecialty [address] [address] [address] [place] [address] Jarrett Dumont MD [address] [place] [address] 05/14/2025 9:00 AM CDT Office Visit [facility] [place] Medical Group Multispecialty Care - [place] [address] [address] [address] [place] [address] Jarrett Dumont MD [address] [place] [address] documented as of this encounter Procedures Procedure Name Priority Date/Time Associated Diagnosis Comments OUTSIDE LAB (SCAN ORDER) 01/31/2025 OUTSIDE LAB (SCAN ORDER) 01/31/2025 documented in this encounter Results * OUTSIDE LAB (SCAN ORDER) (01/31/2025) 01/31/2025 [facility] Scanned SCANNING Final Resu lt * OUTSIDE LAB (SCAN ORDER) (01/31/2025) 01/31/2025 [facility] Scanned SCANNING Final Resu lt documented in this encounter Visit Diagnoses Not on filedocumented in this encounter Care Teams Landscaping And Groundskeeping Laborer Relationship Specialty Start Date End Date Jarrett Dumont MD [address] [place] [address] PCP - General INTERNAL MEDICINE 02/18/22 documented as of this encounter
--- OUTSIDE RECORDS SUMMARY | 2025-02-06 00:15 | XMS_ITS | Encounter Summary ---
Author Organization [facility] Address [address] [place] [address] Care Team Providers Care Brand Coordinator Name Role Phone Jarrett Dumont MD Primary Care Provider [phone] Encounter Details Date Type Department Care Team (Late st Contact Info) Description 01/24/2025 MyChart [facility] [place] [address] [place] [address] Jarrett Dumont MD [address] [place] [address] [phone] Seroquel Social History Tobacco Use Types Packs/Day Years [...] Description 02/22/2025 1:20 PM CDT Office Visit [facility] Mult[facility]pecialty [facility] - [address] [place], [place] [phone] Jarrett Dumont MD [facility] [address] [address] 05/14/2025 9:00 AM CDT Office Visit [facility] Medical Group Multispecialty Care - [place] [address] [address] [place] [address] Jarrett Dumont MD [facility] [address] [address] documented as of this encounter Visit Diagnoses Not on filedocumented in this encounter Care Teams Brand Coordinator Relationship Specialty Start Date End Date Jarrett Dumont MD [address] [place] [address] PCP - General INTERNAL MEDICINE 02/18/22 documented as of this encounter
--- OUTSIDE RECORDS SUMMARY | 2025-02-06 00:15 | XMS_ITS | Data Portability ---
Author Organization [facility] [place] Address [address] [place] [address] Assessment Encounter Date Assessment Date Assessment LastModified by Organization Details LastModified Time 06/27/2024 06/27/2024 Annual gynecological exam performed. Patient will come back in a year unless there are new symptoms. Not available 06/27/2024 11:59:13 Plan of Treatment Reminders Order Date Submit Date Provider Last Modified By Organization Details Last Modified Time Details Appointments Robotic [facility] 2024 10:30A Oneil YOUNG MD Not available Not available Not available SURG POST OP 2024 02:15P Oneil YOUNG MD Not available Not available Not available Lab pap, IG + reflex HPV if ASC-U - if positive HPV run subtyping 16,18/45 2023 024 [facility] (Lab), [address] [facility], [place], [address], 07/10/2024 15:38:55 Referral None recorded. Procedures None recorded. Surgeries robotic assisted hysterect gonzález with salpingec sonny (SURG) 2024 025 [email or web address] [facility] [place], [address] [facility] [address], [place], [address], 01/22/2025 10:16:43 Imaging None recorded. Medication Orders Slynd 4 mg (28) tablet 2024 025 [id number], [address] [facility], [place], [id number], 09/27/2024 13:19:49 Slynd 4 mg (28) tablet 2023 024 [facility][id number], [address] [facility], [place], [place], [id number], 06/27/2024 12:43:01 Patient TargetsNo targets recorded. Patient InstructionsNo instructions recorded. Reason for Referral None Reported. Results Created Date Observation Date Name Description Value Unit Range Abnormal Flag Note LastModifiedBy Organization Detail LastModifiedTime 06/29/2010/08/2022 CT, abdom en + pelvi s, w/ contr ast No observ ation record ed. [email or web address] [facility] [address], [place], [address], 06/29/2024 14:17:00 Result Notes None recorded. Procedures Surgical History Date Name Laterality Status Provider Name and Address Organization Details Recorded Time 4 Date of Last Pap Smear completed SHONNA Pierre [facility] 09/27/2024 11:43:51 2 Laparoscopy completed Lyubov Bruno [facility] 06/27/2024 11:59:42 Imaging Results None recorded. Procedure Notes None recorded. Medical Equipment None Reported. Allergies No known drug allergies Medications Name Sig Start Date Stop Date Status Note LastModified by Organization Details LastModified Time trazodone 50 mg tablet TAKE 1 TABLET BY MOUTH ONE HOUR BEFORE BEDTIME. MAY INCREASE TO 2 TABLETS IF NEEDED. active Not Available Not Available No t Available sumatriptan 25 mg tablet TAKE 1 TABLET BY MOUTH NEEDED FOR MIGRAINE. MAY REPEAT 1 TABLET AFTER AT LEAST 2 HOURS IF NO RELIEF. MAX 8 TABLETS EVERY 24 HOURS active Not Available Not Available No t Available alosetron 1 mg tablet TAKE 1 TABLET BY MOUTH DAILY 06/27 completed Not Available Not Available Not Available dicyclomine 20 mg tablet active Not Available Not Available Not Available ergocalcife rol (vitamin D2) 1,250 mcg (50,000 unit) capsule TAKE 1 CAPSULE BY MOUTH EVERY 7 DAYS active Not Available Not Available No t Available amoxicillin 875 mg-potassidory m clavulanate 125 mg tablet 09/27 completed Not Available Not Available Not Available rizatriptan 5 mg tablet TAKE 1 TABLET BY MOUTH ONCE NEEDED FOR MIGRAINE. MAY REPEAT IN 2 HOURS IF NEEDED active Not Available Not Available No t Available nitrofurant oin monohydrate /macrocryst als 100 mg capsule TAKE 1 CAPSULE BY [...] Updated DateTime 09/27/2024 167.64 cm 40.4 kg/m2 756324.0 9 g 123 mm[Hg] 81 mm[Hg] SHONNA Pierre [facility] 5 11:42:56 Date Recorded Body height Body mass index (BMI) Body weight Systolic blood pressure Diastolic blood pressure Provider Name and Address Organization Details Last Updated DateTime 10/22/2024 167.64 cm 40.4 kg/m2 073793.0 9 g 128 mm[Hg] 83 mm[Hg] [facility] 12:09:17 Date Recorded Body height Body mass index (BMI) Body weight Systolic blood pressure Diastolic blood pressure Provider Name and Address Organization Details Last Updated DateTime 11/21/2024 167.64 cm 39.9 kg/m2 661249.3 2 g 114 mm[Hg] 83 mm[Hg] [facility] 11:33:57 Date Recorded Body height Body mass index (BMI) Body weight Systolic blood pressure Diastolic blood pressure Provider Name and Address Organization Details Last Updated DateTime 01/31/2025 167.64 cm 40 kg/m2 366883.9 1 g 122 mm[Hg] 72 mm[Hg] [facility] 16:30:42 Date Recorded Body weight Body mass index (BMI) Body height Provider Name and Address Organization Details Last Updated DateTime 06/27/2024 54915.86 g 24.2 kg/m2 167.64 cm [facility] 06/27/2024 12:02:26 Social History Question Answer Notes LastModified by Organizat ion Details LastModified Time Do You Have An Advance Directive? No [email or web address] Information n ot available 06/27/2024 How Many Years Have You Consumed Alcohol? 7 [email or web address] Information not available 06/27/2024 Are You Blind Or Do You Have Difficulty Seeing? No [email or web address] Information n ot available 06/27/2024 What Is Your Level Of Caffeine Consumption? Occasional [email or web address] Information not available 06/27/2024 How Much Tobacco Do You Chew? None [email or web address] Information not available 06/27/2024 In The 14 Days Before Symptom Onset, Have You Had Close Contact With A Laboratory-confirm ed COVID-19 While That Case Was Ill? No [email or web address] Information n ot available 06/27/2024 In The 14 Days Before Symptom Onset, Have You Had Close Contact With A Person Who Is Under Investigation For COVID-19 While That Person Was Ill? No [email or web address] Information not available 06/27/2024 Have You Been To An Area Known To Be High Risk For COVID-19? No [email or web address] Information not available 06/27/2024 Are You Deaf Or Do You Have Serious Difficulty Hearing? No [email or web address] Information not available 06/27/2024 What Type Of Diet Are You Following? REGULAR [email or web address] Information n ot available 06/27/2024 What Is The Highest Grade Or Level Of School You Have Completed Or The Highest Degree You Have Received? [id number] Information not available 06/27/2024 Are There Any Guns Present In Your Home? No Information not available 06/27/2024 Do You Use Protection During Sex? Always [email or web address] Information not available 06/27/2024 Do You Use Your Seat Belt Or Car Seat Routinely? Yes [email or web address] Information not available 06/27/2024 Do You Have Smoke And Carbon Monoxide Detectors In Your Home? Yes [email or web address] Information not available 06/27/2024 At What Age Did You Start Smoking Tobacco? 1 [email or web address] Information not available 06/27/2024 Do You Use Sunscreen Routinely? Yes [email or web address] Information not available 06/27/2024 How Many Years Have You Smoked Tobacco? 0 [email or web address] Information not available 06/27/2024 Have You Used IV Drugs? No [email or web address] Information not available 06/27/2024 Do You Have Difficulty Walking Or Climbing Stairs? No [email or web address] Information not available 09/27/2024 Sex: Unknown Functional Status Question Answer Note LastModified by Organizat ion Details LastModified Time Do you use any illicit or recreational drugs? No [email or web address] Information not available 06/27/2024 What is your level of alcohol consumption? Occasional [email or web address] Information not available 06/27/2024 Are you able to walk? YESWOREST [email or web address] Information not available 06/27/2024 Are you able to care for yourself? 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 No [email or web address] Information not available 09/27/2024 What is your exercise level? Occasional [email or web address] Information not available 06/27/2024 Mental Status Question Answer Note LastModified by Organization D etails LastModified Time Do you feel stressed (tense, restless, nervous, or anxious, or unable to sleep at night)? [id number] [email or web address] Information not available 06/27/2024 Family History Relationship Description Onset Age of this Age Resolved Age Notes LastModified by Organization Details LastModified Time Maternal Grandmother Diabetes mellitus 50 [email or web address] Not available 2023 11:59:42 Father Diabetes mellitus 50 Not available 2023 11:59:42 Medical History Condition [...] SNOMED-CT Code Diagnosis ICD10 Code Diagnosis Note [id number] Humble Young MD [employer] [address] [address] 06/27/2024 11:44:23 06/27/2024 12:48:42 Gynecologic examination 79485406 Z01.419 Annual gynecologi stephon exam performed. Patient [...] HPV reflex collected ST[facility] [id number] Z30.9 Today we discussed multiple options for [...] 3 months for med check. Secondary dysmenorrhea 90658451 N94.5 [id number] Humble Young MD [employer] [address] [address] 09/27/2024 11:33:44 09/27/2024 13:22:10 Contraception care management 625068788 Z30.9 has noticed some improvemen t since starting slyndstill feels like symptoms could be better controlled options reviewed (continous cycling, switching pills/alte rnative options like IUD, or MD consult)we discussed option of continous cycling, skip placebo pills and go straight to new packshe is going [facility] the [facility] Time spent in visit is a total of 18 mins with at least 50% of visit consisting of counseling and review of plan of care. Dysmenorrhea 095059732 N 94.6 [id number] Humble Young MD [employer] [address],[facility] [place] [address] 10/22/2024 11:45:12 10/22/2024 12:45:40 Menorrhagia 426071883 N92.0 Dysmenorrhea 023587857 N 94.6 This patient is a 29 [...] 30 minutes on her care in total. [id number] Humble Young MD [employer] [address] [address] 11/21/2024 11:21:36 11/21/2024 14:47:24 Pain in pelvis 43914749 R10.2 Menorrhagia 305698264 N9 2.0 29-year-ol d female who presents [...] proceed with hysterecto my. Polycystic ovary syndrome 240548278 E28.2 [id number] Humble Young MD [employer] [address] [address] 01/31/2025 15:38:20 01/31/2025 17:30:35 Menorrhagia 898599994 N92.0 Dysmenorrhea 574085770 N 94.6 29-year-ol d female with severe menorrhagi a and dysmenorrh ea. We have agreed to perform robotic assisted hysterecto my with bilateral salpingect gonzález. She understand s the risks, benefits, and alternativ es. She has completed the informed consent process and is ready to proceed. Health Concerns Section Related Observation LastModified by Organization Detai ls LastModified Time None Recorded Concern Status LastModified by Organization Details LastModified Time None Recorded Advance Directives Directive N: Payers Insurance Date Sequence Insurance Name Policy Number Policy Beltran Covered Member ID Beltran Member ID Guarantor Name 09/24/2024 1 [facility] (PPO) [id number] Sandrine Degraff [id number] Sandrine Degraff 10/22/2024 1 [place] Sandrine Degraff [id number] Sandrine Degraff 02/05/[address] [facility] (MEDICAID HMO) [id number] Sandrine Degraff [id number] Sandrine Degraff Notes Date Note Type Note Provider Name [...] switch BC pills.Not sexually active. Lyubov adams, [facility] 06/27/2024 14:09:48 09/27/2024 text/html 29yopresents for med checkstarted slynd for dysmenorrhea 3 months agoprevious to slynd tried combined OCP and was still experiencing painful periodshas noticed improvement with slynd, still experiencing some discomfort during placebo pills KIAN Sims [address], [place], [address], [facility] 09/27/2024 13:22:03 10/22/2024 text/html This patient [...] minutes on her care in total. Humble Young MD [address], [place], [address], [facility] 10/22/2024 12:44:08 11/21/2024 text/html 29-year-old yanelis aguayo who presents for more counseling regarding [...] We agreed to proceed with hysterectomy. Humble Young MD [address], [place], [address], [facility] 11/21/2024 14:20:47 01/31/2025 text/html 29-year-old yanelis aguayo with severe menorrhagia and dysmenorrhea. We have agreed to perform robotic assisted hysterectomy with bilateral salpingectomy. She understands the risks, benefits, and alternatives. She has completed the informed consent process and is ready to proceed. The patient understands the procedure. The procedure was described to the patient in great detail. the patient also understands the risks. The risks were also explained in detail. She understands that injuries May occur during surgery. She understands these injuries can result in hospitalization, more surgery, and severe illness. She understands there is risk of hemorrhage and infection. Humble Young MD [address], [place], [address], [facility] 01/31/2025 17:30:19 OBGyn Episode No OBEpisode recorded.
--- OUTSIDE RECORDS SUMMARY | 2025-02-06 00:15 | XMS_ITS | Encounter Summary ---
Author Organization [facility] Address [address] [place] [address] Care Team Providers Care Crude Oil Treater Name Role Phone Unavailable Primary Care Provider Unavailabl e Prior Encounters Date Type Department Care Team Description 06/08/2022 Telephone [facility] [address] [place] [address] Roxane Matt DDS 04/17/2021 Travel 04/17/2021 9:00 AM CDT Office Visit [facility] [address] [place] [address] Roxane Matt DDS 04/06/2021 Travel 04/06/2021 4:15 PM CDT Office Visit [facility] [address] [place] [address] Roxane Matt DDS 08/27/2019 Converted 13x Documents [facility] [address] [place] [phone] <No scans attached> 08/27/2019 Converted CPS Chart Documents [facility] [address] [place] [address] <No scans attached> 08/27/2019 Converted CPS Chart Documents [facility] [address] [place] [phone] <No scans attached> 08/27/2019 Converted 13x Documents [facility] [address] [place] [address] <No scans attached> 08/27/2019 Converted 13x Documents [facility] [address] [place] [phone] <No [...] - ESTABLISHED PATIENT Routine 09/02/2020 2:00 AM SCOUT EXECUTIVE ORAL HYGIENE INSTRUCTIONS Routine 2020 2:00 AM SCOUT EXECUTIVE TOPICAL APPLICATION OF FLUORIDE VARNISH Routine 09/02/2020 2:00 AM SCOUT EXECUTIVE PROPHYLAXIS - ADULT Routine 09/02/2020 2 :00 AM SCOUT EXECUTIVE BITEWINGS - FOUR RADIOGRAPHIC IMAGES Routine 09/02/2020 2:00 AM SCOUT EXECUTIVE ADDITIONAL X-RAY Routine 09/02/2020 2:00 AM SCOUT EXECUTIVE ADDITIONAL X-RAY Routine 09/02/2020 2:00 AM SCOUT EXECUTIVE ADDITIONAL X-RAY Routine 09/02/2020 2:00 AM SCOUT EXECUTIVE ADDITIONAL X-RAY Routine 09/02/2020 2:00 AM SCOUT EXECUTIVE ADDITIONAL X-RAY Routine 09/02/2020 2:00 AM SCOUT EXECUTIVE SINGLE X-RAY Routine 09/02/2020 2:00 AM SCOUT EXECUTIVE ORAL HYGIENE INSTRUCTIONS Routine 2019 2:00 AM CDT TOPICAL APPLICATION OF FLUORIDE VARNISH Routine 02/26/2020 2:00 AM CDT PROPHYLAXIS - ADULT Routine 02/26/2020 2 :00 AM CDT PERIODIC ORAL EVALUATION - ESTABLISHED PATIENT Routine 02/26/2020 2:00 AM CDT TOPICAL APPLICATION OF FLUORIDE VARNISH Routine 08/28/2019 2:00 AM SCOUT EXECUTIVE PROPHYLAXIS - ADULT Routine 08/28/2019 2 :00 AM SCOUT EXECUTIVE PERIODIC ORAL EVALUATION - ESTABLISHED PATIENT Routine 08/28/2019 2:00 AM SCOUT EXECUTIVE ORAL HYGIENE INSTRUCTIONS Routine 2019 2:00 AM SCOUT EXECUTIVE DELIVER RETAINER(S) Routine 07/19/2019 2 :00 AM SCOUT EXECUTIVE DELIVERY - REPLACEMENT RETAINER - MAXILLARY Routine 06/14/2019 2:00 AM SCOUT EXECUTIVE REMOVABLE ORTHODONTIC RETAINER ADJUSTMENT Routine 06/14/2019 2:00 AM SCOUT EXECUTIVE PERIO CONSULT Routine 03/13/2019 2:00 AM CDT [...] ORAL HYGIENE INSTRUCTIONS Routine 2018 2:00 AM SCOUT EXECUTIVE TOPICAL APPLICATION OF FLUORIDE VARNISH Routine 08/22/2018 2:00 AM SCOUT EXECUTIVE PROPHYLAXIS - ADULT Routine 08/22/2018 2 :00 AM SCOUT EXECUTIVE PERIODIC ORAL EVALUATION - ESTABLISHED PATIENT Routine 08/22/2018 2:00 AM SCOUT EXECUTIVE ORAL HYGIENE INSTRUCTIONS Routine 2017 2:00 AM [...] CDT CANCELLED APPOINTMENT Routine 08/06/2016 2:00 AM SCOUT EXECUTIVE CANCELLED APPOINTMENT Routine 08/06/2016 2:00 AM SCOUT EXECUTIVE PERIODIC ORAL EVALUATION - ESTABLISHED PATIENT Routine 03/31/2016 2:00 AM CDT ORAL HYGIENE INSTRUCTIONS Routine 2015 2:00 AM CDT TOPICAL APPLICATION OF FLUORIDE VARNISH Routine 02/26/2016 2:00 AM CDT PROPHYLAXIS - ADULT Routine 02/26/2016 2 :00 AM CDT PERIODIC ORAL EVALUATION - ESTABLISHED PATIENT Routine 02/26/2016 2:00 AM CDT PERIODIC ORAL EVALUATION - ESTABLISHED PATIENT Routine 08/11/2015 2:00 AM SCOUT EXECUTIVE ORAL HYGIENE INSTRUCTIONS Routine 2014 2:00 AM SCOUT EXECUTIVE TOPICAL APPLICATION OF FLUORIDE VARNISH Routine 07/29/2015 2:00 AM SCOUT EXECUTIVE PROPHYLAXIS - ADULT Routine 07/29/2015 2 :00 AM SCOUT EXECUTIVE 19 B COMPOSITE FILLING Routine 4 2:00 AM SCOUT EXECUTIVE 18 B COMPOSITE FILLING Routine 4 2:00 AM SCOUT EXECUTIVE ORAL HYGIENE INSTRUCTIONS Routine 2013 2:00 AM SCOUT EXECUTIVE TOPICAL APPLICATION OF FLUORIDE VARNISH Routine 07/31/2014 2:00 AM SCOUT EXECUTIVE PROPHYLAXIS - ADULT Routine 07/31/2014 2 :00 AM SCOUT EXECUTIVE PERIODIC ORAL EVALUATION - ESTABLISHED PATIENT Routine 07/31/2014 2:00 AM SCOUT EXECUTIVE BITEWINGS - FOUR RADIOGRAPHIC IMAGES Routine 07/31/2014 2:00 AM SCOUT EXECUTIVE BITEWINGS - FOUR RADIOGRAPHIC IMAGES Routine 01/30/2014 [...] ORAL HYGIENE INSTRUCTIONS Routine 2012 2:00 AM SCOUT EXECUTIVE TOPICAL APPLICATION OF FLUORIDE EXCLUDING VARNISH Routine 06/26/2013 2:00 AM SCOUT EXECUTIVE PROPHYLAXIS - CHILD Routine 06/26/2013 2 :00 AM SCOUT EXECUTIVE PERIODIC ORAL EVALUATION - ESTABLISHED PATIENT Routine 06/26/2013 2:00 AM SCOUT EXECUTIVE CANCELLED APPOINTMENT Routine 04/23/2013 2:00 AM CDT [...] CDT Visit Diagnoses Not on file Insurance SIL[place] AMADOR [id number] [place] [address] [place] [address] [place] [address]
--- OUTSIDE RECORDS SUMMARY | 2025-02-06 00:15 | XMS_ITS | Patient Health Record ---
Author Organization [facility] es Billing Info Address [address] [facility] [place] [address] Care Team Providers Care Inspector Canned Food Reconditioning Name Role Phone LANRE FARLEY [phone] Allergies No Known Allergies Reason For Referral [...] Problem Status W/U Status Risk Notes Problem 42859504 Secondary dysmenorrhea (N94.5) Active confirmed Problem 152610837 Encounter for gynecological examination (Z01.419) Active confirmed Problem 0458793 Surveillance for control, oral contraceptives (Z30.41) Active confirmed Problem 35209613 Pelvic pain (R10.2) Active confirmed Plan Of Treatment Pending Test Test Name Order Date URINALYSIS, DIP STICK/TABLET REAGENT; NON-AUTOMATED W/O MICROSCOPY (99052) 10/13/2021 Insurance Providers Payer Name Payer Address Payer Phone Subscriber Number Group Number Insured Name Patient Relationship to Insured Coverage Start Date Coverage End Date [employer] [address] FELICIANO BLACK [id number] Sandrine Woodward Self - patient is the insured 2 2 Medical (General) History Medical History History ICD Code Anemia - very mild Asthma - very mild OCD Surgical History Surgery Date(Month/Year) Robotic diag lap w/ excision of endo 05/2022
--- OUTSIDE RECORDS SUMMARY | 2025-02-06 00:15 | XMS_ITS | Encounter Summary ---
Author Organization [facility] Address [address] [place] [address] Care Team Providers Care Solar Installer Pv Name Role Phone Jarrett Dumont MD Primary Care Provider [phone] Encounter Details Date Type Department Care Team (Latest Contact Info) Description 03/16/2022 [employer] Message Enc [facility] Medical Group Multispecialty Care - [place] [address] [address] [place] [address] Jarrett Dumont MD [address] [place] [address] [address] [place], [place] [id number] High white blood cells Social History Tobacco Use Types Packs/Day Years [...] suspected to have Coronavirus/COVID-19? No / Unsure 03/16/2022 10:48 AM CDT documented as of this encounter Functional Status * Calculated C-SSRS Risk Score (Lifetime/Recent) Answer Date of Assessment Author Status No Risk Indicated 03/16/2022 11:38 AM JOÃOT Jarrett Dumont MD Active * [place] Suicide Severity Rating Scale (Screener/Recent Self-Report) Question Answer Date of Assessment Author Status 1. Wish to be (Past 1 Month) No 03/16/2022 11:38 AM JOÃOT Jarrett Dumont MD Active 2. Non-Specific Active Suicidal Thoughts (Past 1 Month) No 03/16/2022 11:38 AM CDT Jarrett Dumont MD Active 6. Suicidal Behavior (Lifetime) No 03/16/2022 11:38 AM JOÃOT Jarrett Dumont MD Active documented as of this encounter Plan of Treatment Upcoming Encounters Date Type Department Care Team (Late st Contact Info) Description 02/22/2025 1:20 PM CDT Office Visit [facility] - [address] [address] Jarrett Dumont MD [address] [place] [address] 05/14/2025 9:00 AM CDT [facility] - [address] [address] Jarrett Dumont MD [facility] [address] [address] documented as of this encounter Visit Diagnoses Not on filedocumented in this encounter Care Teams Solar Installer Pv Relationship Specialty Start Date End Date Jarrett Dumont MD [address] [place] [address] PCP - General INTERNAL MEDICINE 02/18/22 documented as of this encounter
--- OUTSIDE RECORDS SUMMARY | 2025-02-06 00:16 | XMS_ITS | Encounter Summary ---
Author Organization [facility] Address [address] [place] [address] Care Team Providers Care Ticket Collector Name Role Phone Jarrett Dumont MD Primary Care Provider [phone] Encounter Details Date Type Department Care Team (Latest Contact Info) Description 04/25/2024 MyChart Message Enc [facility] - [place] [address] [place] [address] Carole Ray, SUPERVISOR FITTING [address] [place], [place] [phone] Lab order and medication Social History Tobacco Use Types Packs/Day Years [...] Description 02/22/2025 1:20 PM CDT [facility] [address] [place] [address] Jarrett Dumont MD [address] [address] 05/14/2025 9:00 AM CDT [facility] Multispecialty Care - [address] [place] [address] Jarrett Dumont MD [facility] [address] [address] documented as of this encounter Visit Diagnoses Not on filedocumented in this encounter Care Teams Ticket Collector Relationship Specialty Start Date End Date Jarrett Dumont MD [address] [place] [address] PCP - General INTERNAL MEDICINE 02/18/22 documented as of this encounter
--- OUTSIDE RECORDS SUMMARY | 2025-02-06 00:16 | XMS_ITS | Encounter Summary ---
Author Organization [facility] Address [address] [place] [address] Care Team Providers Care Tattoo Technician Name Role Phone Jarrett Dumont MD Primary Care Provider [phone] Encounter Details Date Type Department Care Team (Latest Contact Info) Description 04/29/2024 MyChart Message Enc [facility] Medical Group Multispecialty Care - [place] [address] [facility] [address] [place] [address] Carole Ray NP [address] [place] [address] Confirmation question Social History Tobacco Use Types Packs/Day Years [...] on file documented as of this encounter Progress Notes * Carole Ray NP - 04/30/2024 10:53 AM CDTClexi Monsivais MA 04/30/2024 10:39 AM CDT ----- Message ----- From: Sandrine Melvin Sent: 04/30/2024 10:38 AM CDT To: Carole Squires Nurse Subject: Confirmation question Sure! I think the nurse was just covering her bases since I had to pee when they called me back. Also the pressure did not feel like this even a couple days ago. documented in this encounter Plan of Treatment Upcoming Encounters Date Type Department Care Team (Late st Contact Info) Description 02/22/2025 1:20 PM CDT [facility] - [address] [address] Jarrett Dumont MD [address] [place] [address] 05/14/2025 9:00 AM CDT [facility] - [address] [address] Jarrett Dumont MD [address] [place] [address] documented as of this encounter Visit Diagnoses Diagnosis Urinary frequency- Primary documented in this encounter Care Teams Tattoo Technician Relationship Specialty Start Date End Date Jarrett Dumont MD [address] [place] [address] PCP - General INTERNAL MEDICINE 02/18/22 documented as of this encounter
--- OUTSIDE RECORDS SUMMARY | 2025-02-06 00:16 | XMS_ITS | Encounter Summary ---
Author Organization [facility] Address [address] [place] [address] Care Team Providers Care Government Program Manager Name Role Phone Jarrett Dumont MD Primary Care Provider [phone] Encounter Details Date Type Department Care Team (Late st Contact Info) Description 11/10/2023 [employer] [facility] [address] [place] [address] [place], [facility] Provider Action Needed Social History Tobacco Use Types Packs/Day Years [...] Encounters Date Type Department Care Team (Late Contact Info) Description 02/22/2025 1:20 PM CDT Office Visit [facility] Medical Group Multispecialty Care - [place] [address] [address] [place] [address] Jarrett Dumont MD [address] [place] [address] 157 [place] [address] 05/14/2025 9:00 AM CDT Office Visit [facility] Medical Group Multispecialty Care - [place] [address] [address] [place] [address] Jarrett Dumont MD [facility] [address] [address] documented as of this encounter Visit Diagnoses Not on filedocumented in this encounter Care Teams Government Program Manager Relationship Specialty Start Date End Date Jarrett Dumont MD [address] [place] [address] PCP - General INTERNAL MEDICINE 02/18/22 documented as of this encounter
--- OUTSIDE RECORDS SUMMARY | 2025-02-06 00:16 | XMS_ITS | Patient Health Record ---
Author Organization [facility] Address [address] [facility] [address] [place] [address] Care Team Providers Care Last Ironer Name Role Phone SHIRA MUIR Primary Care Provider Allergies No Known Allergies Reason For Referral No Information Medications Medication SIG (Take, Route, Frequency, Duration) Notes Start Date End Date Status FLUoxetine HCl 20 MG 1 capsule Orally On ce a day Active Loestrin 1.5/30 (21) 1.5-30 MG-MCG 1 tablet Orally Once a day; Duration: 21 day(s) Active Cetirizine HCl 10 MG [...] Problem Status W/U Status Risk Notes Problem Vaccination given (060199320) Encounter for immunization (Z23) Active confirmed Problem Allergic rhinitis (34022877) Allergic rhinitis, unspecified seasonality, unspecified trigger (J30.9) Active confirmed Problem Vitamin D deficiency (88306630) Vitamin D deficiency (E55.9) Active confirmed Problem Anxiety (89001606) Anxiety (F41.9) Active confirmed Problem Mild intermittent asthma (074982061) Mild intermittent asthma without complication (J45.20) Active confirmed Problem Sinus tachycardia (45514274) Sinus tachycardia (R00.0) Active confirmed Problem Decreased breath sounds (96840110) Decreased breath sounds (R06.89) Active confirmed Problem Iron deficiency anemia (34580342) Iron deficiency anemia, unspecified iron deficiency anemia type (D50.9) Active confirmed Problem Adult health examination (009945804) Adult general medical exam (Z00.00) Active confirmed Problem Depression screening (720816895) Screening for depression (Z13.31) Active confirmed Problem Alcohol consumption screening (252116666) Alcohol screening (Z13.39) Active confirmed Plan Of Treatment Future Test Test Name Order Date VITAMIN B12 (927) 06/04/2021 Insurance Providers Payer Name Payer Address Payer Phone Subscriber Number Group Number Insured Name Patient Relationship to Insured Coverage Start Date Coverage End Date 6 [facility] [facility] [address] [address] [place] [address] [id number] SUSI MORGAN Self - patient is the insured Medical (General) History Medical History History ICD Code OCD 2017 Surgical History Surgery Date(Month/Year) Tonsils, adenoids removed 2009 wisdom teeth removed 2017
[2025-02-06] MEDS: ACETAMINOPHEN 500 MG TABLET 1000 MG PO ×3 (08:48→21:26)
[2025-02-06] MEDS: LACTATED RINGERS 1,000 ML 30 ML IV CONT ×2 (08:55→12:33)
[2025-02-06] MEDS: KETOROLAC 15 MG/ML VIAL (*BKC) IV PUSH (09:00)
[2025-02-06 09:35] LABS: BEDSIDEPREGUCG Negative (Negative)
--- NOTE | 2025-02-06 09:38 | WPDHPUPDATE1 ---
History and Physical Update Update Date/Time: 02/06/25 09:38 History and Physical has been reviewed, including an updated exam of the patient. There are NO changes in the patient's condition. Risks, benefits, and alternatives have been discussed and questions answered. Patient agrees to proceed with procedure.
--- NOTE | 2025-02-06 09:54 | P.PNAN_ITS ---
Anes - Initial Pre Proc Eval Procedure: Operation Date: 02/06/25 10:30 Proposed Procedures p Robotic Assisted Hysterectomy with Bilateral Salpingectomy - Humble Parker MD Date/Time: 02/06/25 09:54 Surgeon: Humble Parker MD Pre Op Diagnosis: dysmennorhea Patient Data Age: 29 Gender: F Height: 1.68 m Weight: 111.4 kg Last Vital Signs Temp 97.8 F 02/06/25 08:25 Pulse 118 H 02/06/25 08:25 Resp 20 02/06/25 08:25 BP 141/86 H 02/06/25 08:25 Pulse Ox 99 02/06/25 08:25 O2 Del Method Room Air 02/06/25 08:25 Allergies Allergy/AdvReac Type Severity Reaction Status Date / Time No Known Allergies Allergy Verified 02/06/25 09:27 Home Medications ?Medication ?Instructions ?Recorded ?Confirmed ?Type cholecalciferol (vitamin D3) 25 25 mcg PO DAILY 01/30/25 02/06/25 History mcg (1,000 unit) chewable tablet (VitaJoy Daily D) drospirenone (contraceptive) 4 mg 4 mg PO DAILY 01/30/25 02/06/25 History (28) tablet (Slynd) levocetirizine 5 mg tablet 5 mg PO HS 01/30/25 02/06/25 History (Allergy Relief (levocetirizine)) mometasone 50 mcg/actuation nasal 2 spray intranasal DAILY 01/30/25 02/06/25 History spray multivitamin (Daily Multi-Vitamin 1 tablet PO DAILY 01/30/25 02/06/25 History tablet) omega 9-ptp-ykt-fish oil 1,200 mg 1 cap PO DAILY 01/30/25 02/06/25 History (144 mg-216 mg) capsule (Fish Oil) pantoprazole 40 mg tablet,delayed 40 mg PO QAM 01/30/25 02/06/25 History release rimegepant 75 mg disintegrating 75 mg PO DAILY PRN migraine 01/30/25 01/30/25 History tablet (Nurtec ODT) headache Laboratory Tests 02/06/25 08:35 POC Urine HCG, Qual Negative (Negative) Patient hx anesthesia problems: none Family hx anesthesia problems: none Results Review: All pre-operative results and documents have been reviewed as part of the pre- operative evaluation. [facility] Social History Social History Smoking status: Never smoker Substance use type: marijuana Other substance usage details: THC sometimes. Living arrangements: with family Spiritual care concerns: No Anes - Eval Final PreProcedure Day of Procedure 02/06/25 09:54 Patient weight: morbidly obese Heart: regular rate and rhythm Lungs: clear to auscultation Airway: Mallampati scale class II Neurological: alert and oriented Last oral intake: >/= 8 hours ASA classification: III Emergent: no Anesthetic plan: proceed Anesthesia type and monitoring: general ETT and standard monitoring Results Review: All pre-operative results and documents have been reviewed as part of the pre- operative evaluation. Informed Consent: The patient's anesthetic plan and its attendant risks and benefits were discussed with the patient/family/POA. Questions were solicited and answers provided to the satisfaction of the patient/family/POA.
[2025-02-06] MEDS: ceFAZolin 2 GM/D5W 50 ML 2 GM/50 ML BAG IVPB (10:04)
--- NOTE | 2025-02-06 11:31 | S_PTH ---
PATIENT: Sandrine Melvin LOC: [facility] U#:[id number] AGE/SX: 29/F ROOM: RE02/06/[address]: Humble Parker MD : 1995 BED: DIS: 02/07/2025 SPEC #: [id number] RECD: 02/06/25 13:24 STATUS: SHEFALI REQ #: [id number] MELANIE: 02/06/25 11:[address]: Humble Parker DEPT: [facility] Surgical RECD BY: Yaima Montgomery ENTERED: 02/06/25 13:25 SP TYPE: Surgical OTHR DR: Jarrett Dumont, Tissues: A - Uterus Procedures: Hematoxylin and Eosin Stain Gross and Microscopic Level 5
--- NOTE | 2025-02-06 11:58 | W.PM.PROC2 ---
Procedure Note - Detailed Date of Procedure 02/06/25 Pre-op Diagnosis dysmennorhea Post-op Diagnosis Same Procedure Performed Robot assisted Total hysterectomy with bilateral salpingectomy. Surgeon Humble Parker MD Anesthesia General Indications heavy vaginal bleeding, pelvic pain Findings normal-appearing uterus, ovaries, and fallopian tubes. Description of Procedure This patient was taken to the operating room. She was prepped and draped in the dorsal lithotomy position after induction of general anesthesia. The uterine manipulator and Sofie cup were placed. This was done with a speculum and tenaculum. The speculum was placed. The cervix was grasped with a tenaculum. The stay sutures were placed at 3 and 9:00 a.m.. The stay sutures of 0 Vicryl were tied to the appropriately Size scope after it was slipped around the cervix.. The tip of the FIFI manipulator was placed in the intrauterine cavity. The cup was slid into place around the cervix and into the fornices. It was locked into place. The sutures were then wrapped around the handle and tied under tension. A 8 mm skin incision was made in the left upper quadrant the abdomen. a 5 mm Visiport trocar was inserted into abdominal cavity and pneumoperitoneum was achieved. A 8 mm supraumbilical incision was made and a 8 mm trocar was inserted into the intrauterine cavity under direct visualization of the scope. an 8 mm incision was made in the right upper quadrant of the abdomen and an 8 mm robotic trocar was placed the inter uterine cavity under direct visualization the scope. An 11 mm trocar was inserted in the right upper quadrant of the abdomen rectal is a cystoscope after an incision was made there as well. The robot was docked. Electronic Orientation of the robot was performed. Bilateral ureteral lysis was performed. This was done from the pelvic brim down to the uterine artery. This was done with careful dissection using sharp and blunt dissection. The fallopian tubes were removed bilaterally. The mesosalpinx around the fallopian tubes were cauterized transected with LigaSure cautery. This was done in a bilateral fashion from the ovary to the uterine cornua. The fallopian tube was transected at the uterine cornu and amputated. The tube was taken out the left lower quadrant trocar site. In a stepwise fashion along the lateral aspects of the uterus the round ligament and broad ligaments were cauterized transected down to the level of the uterine arteries. A bladder flap was created in the bladder was moved distally to the end of the cervix and over the Sofie cup. The bilateral uterine arteries were cauterized and transected. Colpotomy was then performed. In a circumferential fashion the vagina was transected using unipolar cautery. The incision was made down on the Sofie cup. The uterus and cervix were taken out through the vagina. A pneumo occluder was placed in the vagina. The vaginal cuff was closed with a 0 V lock suture in a running fashion. The pelvis was irrigated with copious amounts antibiotic irrigation. The ureters were again examined and found to be intact and flowing freely under the uterine arteries into the bladder. The bladder was intact. It was examined directly. Cystoscopy was performed after administration of methylene blue. The cystoscope was inserted. Bladder was distended with fluid. The ureteric meatus was observed bilaterally. Blue fluid was seen to egress bilaterally. The bladder was drained and the cystoscope was withdrawn. The vagina was irrigated with Betadine solution after removal of the Pneumo occluder. the trocars were removed after the robot was undocked. The skin was closed with subacute or Dermabond. The patient was taken to recovery room. She was stable condition. Sponge lap and needle counts were correct x2. Estimated Blood Loss 125 Urine Output 800 Drains Yes Packing No Pathology Yes Complications No immediate complications Condition Stable Disposition Floor
[2025-02-06] MEDS: fentaNYL CITRATE INJ (*CRX) 100 MCG/2 ML VIAL 25 MCG IV PUSH ×3 (13:35→14:14)
[2025-02-06] MEDS: DEXTROSE 5%/0.45% SOD CHL 1,000 ML 125 ML IV CONT (14:51)
[2025-02-06] MEDS: KETOROLAC 30 MG/ML VIAL (*BKC) IV PUSH ×2 (14:51→21:25)
[2025-02-06] MEDS: SIMETHICONE 80 MG TAB.CHEW PO ×3 (14:53→19:22)
[2025-02-06] MEDS: DOCUSATE SODIUM 100 MG CAPSULE PO (14:54)
[2025-02-06] MEDS: ONDANSETRON INJ 4 MG/2 ML VIAL IV PUSH ×2 (14:56→21:26)
--- NOTE | 2025-02-06 15:35 | PC.NURSE ---
Patient is tearful requesting urinary catheter to come out. States she will not be able to pass gas with catheter in. Called Dr. Parker at 1530 who authorizes catheter to be taken out now. Patient is draining blue/green urine. 300mL urine emptied from catheter.
--- NOTE | 2025-02-06 16:35 | ADMGEN ---
This patient, Sandrine Melvin, was admitted to [facility] 2[facility] Floor Room 292-00. Patient/family oriented to hospital policies and general routines including ID bracelet, bed and alarms, visiting hours, pain management, procedures, bathroom and other care routines, personal items, smoking policy, room service/diet, and visiting hours. Information on how to activate the Rapid Response Team has been discussed. Patient/Family are encouraged to report perceived risks to care and to ask questions if they do not understand what they are told or what they should do.
[2025-02-06] MEDS: BISACODYL 10 MG SUPPOSITORY RECTAL ×2 (21:50→23:20)
[2025-02-06] MEDS: DICYCLOMINE HCL 10 MG CAPSULE PO (22:32)
[2025-02-07 00:10] VITALS: BP 127/52; PULSE 85; RESP 18; TEMP 36.8; O2SAT 100
[2025-02-07] MEDS: SENNOSIDES 8.6 MG TABLET PO (00:58)
[2025-02-07] MEDS: KETOROLAC 30 MG/ML VIAL (*BKC) IV PUSH (03:46)
[2025-02-07] MEDS: ACETAMINOPHEN 500 MG TABLET 1000 MG PO ×3 (03:46→14:56)
[2025-02-07 04:10] VITALS: BP 105/57; PULSE 78; RESP 18; TEMP 36.7; O2SAT 99
--- NOTE | 2025-02-07 07:12 | PC.NURSE ---
Dr. Khan informed of pt's c/o sharp gas pains. Pt was given Senokot and 2 Dulcolax suppositories overnight. Pt passed a couple of cheryl of stool with some gas only when suppositories were expelled. Informed pt has been walking in room and sitting up on couch. No nausea or vomiting. Bowels sounds active in all 4 quadrants. OK to give another dose of Mylicon. To encourage pt to chew gum and drink any warm beverage like tea or coffee.
--- NOTE | 2025-02-07 07:20 | PC.NURSE ---
Pt was given an ice pack for some incisional burning, hot tea, and a pack of gum to chew, and hot tea. Pt is walking in room at present.
[2025-02-07] MEDS: SIMETHICONE 80 MG TAB.CHEW PO ×3 (07:23→14:58)
[2025-02-07 08:40] VITALS: BP 115/66; PULSE 76; RESP 16; TEMP 37.2; O2SAT 97
[2025-02-07] MEDS: IBUPROFEN 600 MG TABLET PO ×2 (09:00→14:56)
[2025-02-07] MEDS: DOCUSATE SODIUM 100 MG CAPSULE PO (09:02)
[2025-02-07] MEDS: DICYCLOMINE HCL 10 MG CAPSULE PO (09:02)
--- NOTE | 2025-02-07 14:19 | WPDANESPN ---
Anes - Prog Note Post-Op Date/Time: 02/07/25 14:19 Cardiovascular status: normal Respiratory status: normal Airway patency: baseline Mental status: baseline Vital Signs: Last Vital Signs Temp 37.2 C 02/07/25 08:40 Pulse 76 02/07/25 08:40 Resp 16 02/07/25 08:40 BP 115/66 02/07/25 08:40 Pulse Ox 97 02/07/25 08:40 O2 Del Method Room Air 02/07/25 08:30 O2 Flow Rate 10 02/06/25 12:45 Pain Score (VAS): 5 I/O: Intake & Output 02/06/25 02/07/25 02/07/25 23:59 07:59 15:59 Intake Total 1000 Output Total 500 Balance 500 Patient Feedback: Patient satisfied with anesthetic care.
--- NOTE | 2025-02-07 15:59 | P.PNOB_ITS ---
[employer]IE[employer] GUIDE - A/P Assessment and plan (1) S/P laparoscopic hysterectomy: Code(s): Z90.710 - Acquired absence of both cervix and uterus Status: Acute Plan - overall meeting post op milestones aside from passing flatus - good bowel sounds, no signs of postop ileus - will try miralax, simethicone, hot tea, and chewing gum - if passing flatus, ok to d/c home Postoperative Procedures: Procedures Operation Date: 02/06/25 10:30 Actual Procedure Side Surgeon p Robotic Assisted Hysterectomy with Bilateral Salpingectomy Bilateral Humble Parker MD Postoperative day: 1 Postoperative plan: routine post-op care Time Spent With Patient Time: Total time spent is greater than 50% in coordination of care (as documented) at patient's floor/unit and/or counseling patient: Time with patient: 15 - 25 minutes [employer] GUIDE- PN:Subj Post-Op Subjective Date/time seen: 02/07/25 15:59 Interval history: POD#1 S/p Ra-TLH Tolerating general diet Voiding without issue Bleeding minimal Has not passed much flatus, concerned due to lack of bowel movement Review of Systems Review of Systems: All systems reviewed & are unremarkable except as noted in HPI and below Exam Const: General: comfortable and no acute distress Resp: Effort & Inspection: normal respiratory effort GI: Other: soft, nontender, nondistended, incision c/d/i [employer] GUIDE - PN: Obj Data Vital Signs Vital Signs: Vital Signs - 24 hr 02/06/25 19:46 02/07/25 00:10 02/07/25 04:10 Temperature 98.1 F 98.2 F 98.0 F Pulse Rate 98 85 78 Respiratory Rate 18 18 18 Blood Pressure 128/67 127/52 L 105/57 L Pulse Oximetry 99 100 99 Oxygen Delivery 02/07/25 08:30 02/07/25 08:40 Temperature 98.9 F Pulse Rate 76 Respiratory Rate 16 Blood Pressure 115/66 Pulse Oximetry 97 Oxygen Delivery Room Air Intake/Output Intake/Output: Intake & Output 02/04/25 02/05/25 02/06/25 02/07/25 23:59 23:59 23:59 23:59 Intake Total 1300 Output Total 1520 Balance -220 Meds/Results Medications: Active Medications Generic Name Dose Route Start Last Admin Trade Name Freq PRN Reason Stop Dose Admin Acetaminophen 1,000 mg 02/06/25 18:00 02/07/25 14:56 Acetaminophen 500 Mg Tablet PO 1,000 mg Q6HR MIRNA Administration Dicyclomine HCl 10 mg 02/06/25 21:01 02/07/25 09:02 Dicyclomine Hcl 10 Mg Capsule PO 10 mg Q6HR PRN Administration Abdominal Cramping Docusate Sodium 100 mg 02/06/25 17:00 02/07/25 09:02 Docusate Sodium 100 Mg Capsule PO 100 mg BID MIRNA Administration Dextrose/Sodium Chloride 1,000 mls @ 125 mls/hr 02/06/25 14:25 02/07/25 10:48 Dextrose 5% Sodium Chloride 0.45% IV CONT Not Given .Q8H MIRNA Ibuprofen 600 mg 02/07/25 12:00 02/07/25 14:56 Ibuprofen 600 Mg Tablet PO 600 mg Q6HR MIRNA Administration Naloxone HCl 0.1 mg 02/06/25 14:25 Naloxone Hcl 0.4 Mg/Ml Vial IV PUSH Q2M PRN Respiratory rate less than 10 Ondansetron HCl 4 mg 02/06/25 14:25 02/06/25 21:26 Ondansetron Inj 4 Mg/2 Ml Vial IV PUSH 4 mg Q6H PRN Administration Nausea And Vomiting Oxycodone HCl 5 mg 02/06/25 14:25 Oxycodone Hcl (*Crx) 5 Mg Tab Ir PO Q4H PRN Pain Rated 4-6 Oxycodone HCl 10 mg 02/06/25 14:25 Oxycodone Hcl (*Crx) 5 Mg Tab Ir PO Q6H PRN Pain Rated 7-10 Polyethylene Glycol 17 gm 02/07/25 10:40 02/07/25 10:54 Polyethylene Glycol 3350 17 Gm Powd.Pack PO 17 gm QAM PRN Administration Constipation Simethicone 80 mg 02/06/25 14:25 02/07/25 14:58 Simethicone 80 Mg Tab.Chew PO 80 mg TIDWM MIRNA Administration
== END 2025-02-07 16:50 | disposition home or self-care (01) ==
LOC: ANHSURGERY 08:13 → ANHOB2 14:34
PROVIDERS: PCP Internal Medicine; Visit Provider Obstetrics & Gynecology
PROC: (CPT 58571; principal; 2025-02-06 10:30)
DX: N94.6 Dysmenorrhea, unspecified (principal); R10.2 Pelvic and perineal pain; F12.90 Cannabis use, unspecified, uncomplicated; E66.01 Morbid (severe) obesity due to excess calories; Z68.39 Body mass index [BMI] 39.0-39.9, adult
CPT/HCPCS: 58571; S2900; 88307; 99199; A9270; J0690; J1100; J1171; J1885; J2003; J2250; J2405; J2704; J3010; J7030; J7120; Q9968